=== PATIENT | male | born 1990 | race African-American/Black ===

== ENCOUNTER 2018-02-26 19:55 | Emergency (ER) | payer SELFPAY ==
[~2018-02-26] VITALS: Ht 188 cm; Wt 90.7 kg
[~2018-02-26 19:55] MED LIST: EXCEDRIN; FAMO20TA5; LORA1TAB PO; LRZ1T PO
--- OUTSIDE RECORDS SUMMARY | 2018-02-26 19:59 | XMS REPORT ---
Author Author GENERATED, SYSTEM Organization Unknown Address Unknown Phone Unavailable Care Team Providers Care Investor Relations Director Name Role Phone UNASSIGNED DOCTOR , DOCTOR PP Reason For Visit Chief Complaint SOB Social History Functional Status Vital Signs Results Chemistry from 03/25/2015 4:55 PMSODIUM 133 MMOL/L L (136-145 MMOL/L) POTASSIUM 3.2 MMOL/L L (3.5-5.1 MMOL/L) CHLORIDE 95 MMOL/L L (98-107 MMOL/L) TCO2 28.7 MMOL/L (21.0-32.0 MMOL/L) ANION GAP 9.3 MMOL/L (8.0-16.0 MMOL/L) BUN 6 MG/DL L (7-18 MG/DL) CREATININE 0.77 MG/DL (0.63-1.13 MG/DL) BUN/CREATININE RATIO 7.8 L (9.1-17.0 ) GLUCOSE 90 MG/DL (65-99 MG/DL) GFR EST NON AFR TUNISIAN >90 ML/MIN GFRA EST AFR AMER >90 ML/MIN CALCIUM 8.7 MG/DL (8.5-10.1 MG/DL) BILIRUBIN TOTAL 0.39 MG/DL (0.20-1.00 MG/DL) TOTAL PROTEIN 8.5 GM/DL H (6.4-8.2 GM/DL) ALBUMIN 4.1 GM/DL (3.4-5.0 GM/DL) GLOBULIN 4.4 GM/DL H (2.3-3.5 GM/DL) A/G RATIO 0.9 MG/DL L (1.5-2.2 MG/DL) ALK PHOS 104 U/L (46-116 U/L) ALT (SGPT) 38 U/L (14-59 U/L) AST (SGOT) 42 U/L H (15-37 U/L) TROPONIN-I 0.05 (SEE BELOW ) Hematology from 03/25/2015 4:55 PMWBC 8.8 X10e3/UL (3.6-11.2 X10e3/UL) RBC 5.30 X10e6/UL (4.06-5.63 X10e6/UL) HEMOGLOBIN 16.4 G/DL H (12.5-16.3 G/DL) HEMATOCRIT 47.1 % (36.7-47.1 %) MCV 88.9 FL (80.0-100.0 FL) MCH 30.9 PG (27.0-33.0 PG) MCHC 34.7 G/DL (32.0-36.0 G/DL) RDW 14.1 % (12.3-17.0 %) RDWSD 42.9 (37.1-47.8 ) PLATELET 316 X10e3/UL (159-386 X10e3/UL) MPV 6.8 FL L (7.4-10.4 FL) AUTOMATED DIFF PERFORMED SEGS 47.0 % LYMPHOCYTES 39.8 % MONOCYTES 12.4 % EOSINOPHILS 0.5 % BASOPHILS 0.3 % ABSOLUTE NEUTROPHILS 4.10 X10e3/UL (1.80-7.80 X10e3/UL) ABSOLUTE LYMPHOCYTES 3.50 X10e3/UL H (1.00-3.00 X10e3/UL) ABSOLUTE MONOCYTES 1.10 X10e3/UL H (0.30-1.00 X10e3/UL) ABSOLUTE EOSINOPHILS 0.00 X10e3/UL (0.00-0.50 X10e3/UL) ABSOLUTE BASOPHILS 0.00 X10e3/UL (0.00-0.20 X10e3/UL) Coagulation from 03/25/2015 4:55 PMD-DIMER 1.70 MG/L FEU H (0.00-0.50 MG/L FEU) DX Radiology from 03/25/2015 4:56 PMCHEST 2 VIEWS HISTORY: Chest Pain PRIORS: None. FINDINGS: The heart size and pulmonary vasculature within normal limits. No consolidating infiltrates are identified. No significant pleural effusion or pneumothorax is seen. IMPRESSION: No acute abnormality. CT Scan from 03/25/2015 6:10 PMCT CHEST (CTA) HISTORY: Chest Pain . Shortness of breath TECHNIQUE: Post contrast images were performed after the administration of 95 milliliters of Isovue intravenous contrast. 3 dimensional reconstructions were performed by the technologist. PRIORS: None. FINDINGS: Heart Size: Normal. Aorta: Intact and normal in size. Mediastinum and Marisa: No dominant adenopathy or fluid collection. Pulmonary Arteries: No evidence of filling defect to suggest pulmonary emboli. Pleura: No effusion or pneumothorax. Pulmonary parenchyma: No consolidation or dominant measurable mass. Upper abdomen: Unremarkable. IMPRESSION: Unremarkable CTA of the thorax without pulmonary embolus or acute aortic abnormality. Problems Encounter Diagnosis No relevant problems exist. Encounters Encounter Diagnosis No relevant problems exist. Plan of Care Procedures No relevant procedures performed. Immunizations No immunizations administered or ordered. Hospital Course Hospital Discharge Instructions Allergies, Adverse Reactions, Alerts * Latex Allergy has not been assessed. * IV Contrast Allergy has not been assessed. Medication Medication reconciliation has not been performed.
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
--- NOTE | 2018-02-26 20:10 | ED Psychosocial ---
General Chief Complaint: Substance Abuse Stated Complaint: INTOXICATION Nursing Triage Note: PT TO ED 6 PER EMS FOR C/O ALCOHOL INTOXICATION. PT GIVEN OPTION PER EMS FROM [facility] TO EITHER GO TO HOSPITAL OR [facility]. PT CHOSE HOSPITAL. PT WILL ONLY STATE HE DRANK "ENOUGH" Source: patient Exam Limitations: intoxication History of Present Illness Date Seen by Provider: Feb 26, 2018 Time Seen by Provider: 19:56 Initial Comments Here by EMS with report of patient being very intoxicated. Patient reports that he drank enough today. Apparently he was found intoxicated in police and EMS were summoned. Police gave him the option of going to nursing home or going to be evaluated at the ER as patient was unable to walk without danger of harming self. Patient chose to go to the emergency department. He denies injury. No obvious injury noted. He is intoxicated. Patient has been incontinent of urine. He is asking for something to eat and a room to stay in overnight. Timing/Duration: this afternoon Severity: moderate Associated Symptoms: ingestion (alcohol) Allergies and Home Medications Allergies Coded Allergies: No Known Drug Allergies (Unverified , 05/25/15) Home Medications No Active Prescriptions or Reported Meds Patient Home Medication List Home Medication List Reviewed: Yes Constitutional: see HPI; No chills, No fever EENTM: no symptoms reported Respiratory: no symptoms reported Cardiovascular: no symptoms reported Gastrointestinal: no symptoms reported Genitourinary: see HPI Musculoskeletal: no symptoms reported Skin: no symptoms reported Psychiatric/Neurological: See HPI Past Brljzdy-Afioqb-Ftmbgt Hx Past Med/Social Hx: Reviewed Nursing Past Med/Soc Hx Patient Social History Alcohol Use: Occasionally Uses Recreational Drug Use: No Smoking Status: Current Everyday Smoker Recent Foreign Travel: No Contact w/Someone Who Travel: No Recent Infectious Disease Expo: No Immunizations Up To Date PED Vaccines UTD: Yes Seasonal Allergies Seasonal Allergies: No Past Medical History Surgeries: No Respiratory: No Currently Using CPAP: No Currently Using BIPAP: No Cardiac: No Neurological: No Reproductive Disorders: No Sexually Transmitted Disease: No HIV/AIDS: No Gastrointestinal: No Musculoskeletal: No Endocrine: No Loss of Vision: Denies Cancer: No Psychosocial: Yes (AUDITORY HALLUCINATIONS) Integumentary: No Blood Disorders: No Adverse Reaction/Blood Tranf: No Family Medical History Reviewed Nursing Family Hx AIDS Alcoholism Cardiovascular disease Diabetes mellitus Hypertension Neoplasm No Pertinent Family Hx Physical Exam Vital Signs Vital Signs - First Documented 02/26/18 20:00 Temp 96.5 Pulse 94 Resp 18 B/P (MAP) 150/93 (112) Pulse Ox 95 O2 Delivery Room Air Capillary Refill : Less Than 3 Seconds General Appearance: WD/WN, no apparent distress, other (and smells of alcohol) HEENT: PERRL/EOMI, pharynx normal Neck: full range of motion, supple Respiratory: lungs clear, normal breath sounds Cardiovascular: regular rate, rhythm, no murmur Gastrointestinal: non tender, soft Extremities: non-tender, normal inspection Neurologic/Psychiatric: alert, other (slurred speech) Appearance/Memory: disheveled Behavior/Eye Contact: cooperative Skin: normal color, warm/dry Progress/Results/Core Measures Results/Orders My Orders Orders - FABRICIO JOHNSON MD General/Regular (02/26/18 Dinner) Vital Signs/I&O 02/26/18 20:00 Temp 96.5 Pulse 94 Resp 18 B/P (MAP) 150/93 (112) Pulse Ox 95 O2 Delivery Room Air Blood Pressure Mean: 112 Progress Progress Note : Progress Note Seen and evaluated. Patient appears significantly intoxicated. He is okay to stay at this point. He is asking for room in the hospital and wants to stay overnight. We did inform him that we can monitor him in the ER which is what I will do. At this point he has elected to stay but states that he is going to leave. We will continue to monitor. Diet requested and offered. 2140: Patient walking in and out of her room and states he wants to leave. He did eat. He did order alcohol level but that is pending. He does not want to stay. Patient left AGAINST MEDICAL ADVICE. Departure Impression Primary Impression: Alcohol abuse Disposition: Condition: Stable Departure-Patient Inst. Decision time for Depature: 21:42 Referrals: NO,LOCAL PHYSICIAN (PCP/Family) Primary Care Physician Patient Instructions: ALCOHOL AND SUBSTANCE ABUSE Add. Discharge Instructions: All discharge instructions reviewed with patient and/or family. Voiced understanding. You are leaving AGAINST MEDICAL ADVICE. You should avoid alcohol. Return for other concerns as needed. Scripts No Active Prescriptions or Reported Meds FABRICIO JOHNSON MD Feb 26, 2018 20:10
[2018-02-26 21:43] VITALS: BP 150/93
== END 2018-02-26 21:49 | disposition left against medical advice (07) ==
LOC: EDUNIT# 19:55 → ER 19:56
DX: F10.129 Alcohol abuse with intoxication, unspecified (principal); F17.210 Nicotine dependence, cigarettes, uncomplicated
CPT/HCPCS: 99283

== ENCOUNTER 2018-06-23 19:37 | Emergency (ER) | payer SELFPAY ==
[~2018-06-23] VITALS: Ht 182.9 cm; Wt 79.4 kg
[2018-06-23] MEDS ORDERED: PANTOPRAZOLE 40 MG (PROTONIX) VIAL IV STA (19:44)
[2018-06-23] MEDS ORDERED: LACTATED RINGERS 1,000 ML IV ONE ×3 (19:44→22:12)
[2018-06-23] MEDS ORDERED: TETANUS,DIPTH,PERTUSS P/F (BOOSTRIX) 0.5 ML VIAL IM STA (19:44)
--- OUTSIDE RECORDS SUMMARY | 2018-06-23 19:47 | XMS REPORT ---
Author Author GENO PAREDES Organization [facility] Address [address] [place] [address] Care Team Providers Care Apparel Merchandiser Name Role Phone GENO PAREDES Unavailable PROBLEMS Type Condition ICD9-CM Code [id number] Code Onset Dates Condition Status SNOMED Code Problem Other chronic pain G89.29 Active 39334020 Problem Pain in right knee M25.561 Active 95775288 ALLERGIES No Information ENCOUNTERS Encounter Location Date Diagnosis [facility] [id number] [place] [phone] Jun, [facility] [id number] [place] [phone] Apr, [facility] [id number] [place] [phone]- [phone] Apr, Pain in right knee M25.561 ; Pain in left knee M25.562 and Other chronic pain G89.29 [facility] [id number] [place] [phone] Dec, [facility] [address] [address] Dec, [facility] [id number] [place] [phone] Oct, [facility] [address] [place] [phone] Feb, [facility] [id number] [place] [phone] Jul, [facility] [address] [address] Jul, [facility] [address] [place] [address] Dec, [facility] [address] [facility] [id number] [place] [address] Mar, [facility] [address] [facility] [id number] [place] [address] Sep, IMMUNIZATIONS No Known Immunizations SOCIAL HISTORY Never Assessed REASON FOR VISIT Xray results PLAN OF CARE VITAL SIGNS MEDICATIONS Unknown Medications RESULTS No Results PROCEDURES No Known procedures INSTRUCTIONS MEDICATIONS ADMINISTERED No Known Medications MEDICAL (GENERAL) HISTORY Type Description Date Hospitalization History dehydration
--- OUTSIDE RECORDS SUMMARY | 2018-06-23 19:47 | XMS REPORT ---
Author Author GENO PAREDES [facility] Address [address] [place] [address] Care Team Providers Care Guide Setter Name Role Phone GENO PAREDES Unavailable PROBLEMS Type Condition ICD9-CM Code BUA12-NA Code Onset Dates Condition Status SNOMED Code Problem Other chronic pain G89.29 Active 89231533 Problem Pain in right knee M25.561 Active 53358975 ALLERGIES Substance Reaction Event Type Date Status amoxicillin Unknown Non Drug Allergy Apr, Active ENCOUNTERS Encounter Location Date Diagnosis [facility] [place] [id number] [place] [phone] Jun, [facility] [place] [id number] [place] [address] Apr, [facility] [place] [id number] [place] [address]- [address] Apr, Pain in right knee M25.561 ; Pain in left knee M25.562 and Other chronic pain G89.29 [facility] [place] [id number] [place] [address] 26[address] Dec, [facility] [place] [id number] [place] [address]- [address] Dec, [facility] [place] [id number] [place] [address]- [phone] Oct, [facility] [place] [id number] [place] [phone]- [address] Feb, [facility] [place] [id number] [place] [phone]- [address] Jul, [facility] [place] [id number] [place] [address]- [address] Jul, [facility] [place] [address] [facility] [id number] [place] [address] Dec, [facility] [place] [address] [facility] [id number] [address] Mar, [facility] [place] [address] [facility] [id number] [place] [address] Sep, IMMUNIZATIONS No Known Immunizations SOCIAL HISTORY Never Assessed REASON FOR VISIT Establish Care Pt c/o bilateral knee pain for over 6 months, pt reports popping often from knees, pain with walking and after sitting for long periods of time LORE [place] PLAN OF CARE Activity Details Follow Up prn Reason: VITAL SIGNS Weight 187.3 lbs 2018-05-12 Temperature 98.7 degrees Fahrenheit 2018-05-12 Heart Rate 88 bpm 2018-05-12 Respiratory Rate 20 2018-05-12 Blood pressure systolic 124 mmHg 2018-05-12 Blood pressure diastolic 72 mmHg 2018-05-12 MEDICATIONS Medication Instructions Dosage Frequency Start Date End Date Duration Status ibuprofen 1 tab Active Claritin 10 mg take 1 tablet by Oral route 1 time per day Oct, Not-Taking Flonase 50 mcg/actuation take 1 sprays by Nasal route 2 times per day in each nostril Oct, Not-Taking Ibuprofen 800 MG Orally Three times a day 1 tablet with food or milk as needed 8h Apr, Active RESULTS Name Result Date Reference Range Xray : Knee, Right 3 views (IN HOUSE) 2018-05-12 PROCEDURES Procedure Date Ordered Result Body Site X-RAY EXAM OF KNEE, 3 May 12, 2018 INSTRUCTIONS MEDICATIONS ADMINISTERED No Known Medications MEDICAL (GENERAL) HISTORY Type Description Date Hospitalization History dehydration
--- OUTSIDE RECORDS SUMMARY | 2018-06-23 19:48 | XMS REPORT | Continuity of Care Document ---
Demographics Preferred Language Unknown Marital Status Unknown [employer] Affiliation Unknown Race Unknown Ethnic Group Unknown Author Author [facility] Address Unknown Phone Unavailable Allergies Active Description Code Type Severity Reaction Onset Reported/Identified Relationship to Patient Clinical Status Yes No Known Drug Allergies [id number] Drug Allergy Unknown N/A 05/25/2015 Medications There [...] KIM KEITA DO Ot 780.1 HALLUCINATIONS 05/26/2015 IKM KEITA DO Ot D69.6 THROMBOCYTOPENIA, UNSPECIFIED 05/26/2015 KIM KEITA DO Ot E87.6 HYPOKALEMIA 05/26/2015 KIM KEITA DO Ot F10.229 ALCOHOL DEPENDENCE WITH INTOXICATION, UN 05/26/2015 KIM KEITA DO Ot F13.10 SEDATIVE, HYPNOTIC OR ANXIOLYTIC ABUSE, 05/26/2015 KIM KEITA DO Ot F17.200 NICOTINE DEPENDENCE, UNSPECIFIED, UNCOMP 05/26/2015 KIM KEITA DO Ot K70.9 ALCOHOLIC LIVER DISEASE, UNSPECIFIED 02/26/2018 FABRICIO JOHNSON MD Ot F10.129 ALCOHOL ABUSE WITH INTOXICATION, UNSPECI 02/26/2018 FABRICIO JOHNSON MD Ot F17.210 NICOTINE DEPENDENCE, CIGARETTES, UNCOMPL 02/28/2018 FABRICIO JOHNSON MD Ot F10.129 ALCOHOL ABUSE WITH INTOXICATION, UNSPECI 02/28/2018 FABRICIO JOHNSON MD Ot F17.210 NICOTINE DEPENDENCE, CIGARETTES, UNCOMPL Procedures There is no data. Results There is no data. Encounters ACCT No. Visit Date/Time Discharge Status Pt. Type Provider Facility Loc./Unit Complaint [id number] 11/04/2012 13:39:00 11/04/2012 23:59:59 CLS Outpatient [id number] 02/26/2018 19:56:00 02/26/2018 21:49:00 DIS Emergency FABRICIO JOHNSON MD Via [facility] ER INTOXICATION [id number] 05/25/2015 17:10:00 05/26/2015 14:38:00 DIS Outpatient KIM KEITA DO [facility] 4TH [id number] 01/25/2011 16:08:00 Document Registration [id number] 03/12/2010 05:03:00 Document Registration
[2018-06-23 19:54] LABS: BASOPHILS % (AUTO) 0 % (0-10); EOSINOPHILS % (AUTO) 0 % (0-10); HEMATOCRIT 48 % (40-54); HEMOGLOBIN 17.5 G/DL (13.3-17.7); LYMPHOCYTES # (AUTO) 2.1 X 10^3 (1.0-4.0); LYMPHOCYTES % (AUTO) 18 % (12-44); MEAN CORPUSCULAR HEMOGLOBIN 32 PG (25-34); MEAN CORPUSCULAR HGB CONC 36 G/DL (32-36); MEAN CORPUSCULAR VOLUME 89 FL (80-99); MEAN PLATELET VOLUME 9.1 FL (7.4-10.4); MONOCYTES # (AUTO) 1.4 X 10^3 (0.0-1.0); MONOCYTES % (AUTO) 12 % (0-12); NEUTROPHILS # (AUTO) 8.3 X 10^3 (1.8-7.8); NEUTROPHILS % (AUTO) 70 % (42-75); PLATELET COUNT 232 10^3/uL (130-400); RED BLOOD COUNT 5.42 10^6/uL (4.35-5.85); RED CELL DISTRIBUTION WIDTH 13.6 % (10.0-14.5); WHITE BLOOD COUNT 11.8 10^3/uL (4.3-11.0)
[2018-06-23 20:09] LABS: ALANINE AMINOTRANSFERASE 52 U/L (0-55); ALBUMIN 4.7 GM/DL (3.2-4.5); ALKALINE PHOSPHATASE 95 U/L (40-136); AMYLASE 128 U/L (25-125); BILIRUBIN,TOTAL 0.4 MG/DL (0.1-1.0); BUN/CREATININE RATIO 14; CALCIUM 9.5 MG/DL (8.5-10.1); CARBON DIOXIDE 22 MMOL/L (21-32); CHLORIDE 100 MMOL/L (98-107); CREATININE SERUM 0.96 MG/DL (0.60-1.30); GFR ESTIMATED > 60; GLUCOSE 95 MG/DL (70-105); LIPASE 29 U/L (8-78); MAGNESIUM 2.1 MG/DL (1.8-2.4); SODIUM 145 MMOL/L (135-145); TOTAL PROTEIN 8.8 GM/DL (6.4-8.2)
[2018-06-23 20:22] LABS: BILIRUBIN,URINE NEGATIVE (NEGATIVE); CLARITY,URINE CLEAR; COLOR,URINE YELLOW; GLUCOSE, URINE (UA) NEGATIVE (NEGATIVE); KETONES,URINE 2+ (NEGATIVE); LEUKOCYTE ESTERASE ,URINE NEGATIVE (NEGATIVE); NITRITE,URINE NEGATIVE (NEGATIVE); PH,URINE 5 (5-9); PROTEIN,URINE 3+ (NEGATIVE); UROBILINOGEN,URINE NORMAL (NORMAL)
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
--- NOTE | 2018-06-23 20:28 | ED General ---
General Chief Complaint: Substance Abuse Stated Complaint: LACERATION TO HEAD Nursing Triage Note: Pt brought to ED by EMS. Pt intoxicated last night and fell at approximatley 2200 hitting head. Pt has laceration to the back of head. Pt reports sleeping all day and then waking at approximately 1600 and drinking one pint of vodka from then until arrival of EMS. EMS state police called EMS. Nursing Sepsis Screen: No Definite Risk Source of Information: Patient, EMS History of Present Illness Date Seen by Provider: Jun 23, 2018 Time Seen by Provider: 19:38 Initial Comments PT ARRIVES VIA EMS--NO IMMOBILIZATION--PT WAS IMMEDIATELY PLACED IN CERVICAL COLLAR ON ARRIVAL TO ER EMS WAS CALLED BY POLICE PT WAS EVICTED FROM A FEMALE FRIEND'S HOUSE TONIGHT AND POLICE WERE CALLED TO THE RESIDENCE TO ASSIST WITH EVICTION. PT IS AN ALCOHOLIC AND DRINKS LARGE AMOUNTS EVERY DAY PT STATES HE WAS VERY INTOXICATED LAST NIGHT --DRANK UNKNOWN AMOUNT OF ALCOHOL-- AND FELL AND HIT THE BACK OF HIS HEAD ON CONCRETE AROUND 2200 LAST PM ACCORDING TO EMS, THIS WAS WITNESSED AND THERE WAS NO LOSS OF CONSCIOUSNESS PT HAS LACERATION TO BACK OF HIS HEAD PT HAS SLEPT ALL DAY AND WOKE UP AT 1600 TODAY AND BEGAN DRINKING AGAIN. PT STATES HE DRANK A PINT OF VODKA SINCE 1600, WHICH IS NORMAL FOR HIM. PT DENIES ANY HISTORY OF WITHDRAWL SEIZURES OR DT'S, AND CLAIMS THAT HE HAS GONE FOR A FEW DAYS WITHOUT ALCOHOL AND DID NOT HAVE THESE SYMPTOMS STATES HE DOES START TO SHAKE IF HE GOES TOO LONG WITHOUT ALCOHOL. WAS REPORTED TO EMS THAT PT HAS BEEN ESSENTIALLY HOMELESS, UNTIL HE MOVED IN WITH FEMALE FRIEND PER EMS, PT WAS EVICTED TONIGHT DUE TO HIS DRINKING PER EMS, THERE WAS NO ALTERCATION TONIGHT, BUT POLICE WERE CALLED TO AVOID ANY ALTERCATION WHEN PT WAS EVICTED. POLICE ARE NOT HERE WITH PT AND PT IS NOT UNDER ARREST, PER EMS. PT ONLY C/O HIS HEAD HURTING ALSO STATES HIS CHEST IS HURTING, BUT THIS IN ONGOING PROBLEM FOR SEVERAL WEEKS , AND HAS NEVER SOUGHT CARE, AND IS NO DIFFERENT TONIGHT. NO VISION CHANGES NO NAUSEA/VOMITING NO DIZZINESS NO NECK OR BACK PAIN NO SHORTNESS OF BREATH NO ABDOMINAL PAIN NO EXTREMITY PAIN . PT STATES HE HAS "KNEE PROBLEMS" AND TAKES IBUPROFEN, BUT HAS NOT HAD ANY KNEE PAIN TODAY LAST TETANUS IS UNKNOWN PCP: [facility] Allergies and Home Medications Allergies Coded Allergies: No Known Drug Allergies (Unverified , 05/25/15) Home Medications No Active Prescriptions or Reported Meds Patient Home Medication List Home Medication List Reviewed: Yes Review of Systems Review of Systems Constitutional: no symptoms reported; No dizziness EENTM: no symptoms reported; No blurred vision Respiratory: no symptoms reported Cardiovascular: see HPI, chest pain; No edema, No palpitations, No syncope, No vascular heart diseas Gastrointestinal: no symptoms reported; No abdominal pain, No nausea, No vomiting Genitourinary: no symptoms reported Musculoskeletal: see HPI; No back pain, No neck pain Skin: see HPI, other (LACERATION TO BACK OF HEAD, ABRASIONS TO ARMS) Psychiatric/Neurological: See HPI, Headache; Denies Numbness, Denies Paresthesia, Denies Seizure, Denies Tremors, Denies Weakness Hematologic/Lymphatic: No Symptoms Reported Immunological/Allergic: no symptoms reported Past Jalbcfj-Tsefaj-Nufmal Hx Patient Social History Alcohol Use: Regular Use ("A PINT" OF VODKA A DAY, PER PT ON 06/23/18) Alcohol Beverage of Choice: Vodka Recreational Drug Use: Yes (THC) Drug of Choice: THC Smoking Status: Current Everyday Smoker (<1/2 PPD) Type Used: Cigarettes Recent Foreign Travel: No Contact w/Someone Who Travel: No Recent Infectious Disease Expo: No Immunizations Up To Date Tetanus Booster (TDap): More than 5yrs PED Vaccines UTD: Yes Seasonal Allergies Seasonal Allergies: No Past Medical History Surgeries: No Respiratory: No Currently Using CPAP: No Currently Using BIPAP: No Cardiac: No Neurological: No Reproductive Disorders: No Sexually Transmitted Disease: No HIV/AIDS: No Genitourinary: No Gastrointestinal: No Musculoskeletal: Yes (KNEE PAIN ) Endocrine: No HEENT: Yes (POOR DENTITION) Loss of Vision: Denies Cancer: No Psychosocial: Yes (AUDITORY HALLUCINATIONS; ALCOHOLISM) Integumentary: No Blood Disorders: No Adverse Reaction/Blood Tranf: No Family Medical History AIDS Alcoholism Cardiovascular disease Diabetes mellitus Hypertension Neoplasm No Pertinent Family Hx Physical Exam Vital Signs Vital Signs - First Documented 06/23/18 19:37 Temp 98.2 Pulse 93 Resp 20 B/P (MAP) 152/102 (119) Pulse Ox 96 O2 Delivery Room Air Capillary Refill : Less Than 3 Seconds Height, Weight, BMI Height: 6'0" Weight: 175lbs. 0.0oz. 79.094570xl; BMI Method:Estimated General Appearance: No Apparent Distress, WD/WN, Other (SITTING UP, TALKING, LAUGHING,. PT IS PLEASANT, POLITE AND COOPERATIVE) HEENT: PERRL/EOMI, TMs Normal, Other (POOR DENTITION. MINOR ABRASION/SWELLING/ ECCHYMOSIS BELOW RIGHT EYE AND MINOR ABRASION TO BRIDGE OF NOSE. 2 CM LACERATION TO OCCIPUT. NO ACTIVE BLEEDING. DOES NOT APPEAR TO EXTEND TO BONY SKULL) Neck: Full Range of Motion, Normal Inspection, Non Tender, Supple Respiratory: Chest Non Tender, Normal Breath Sounds, No Accessory Muscle Use, No Respiratory Distress Cardiovascular: Regular Rate, Rhythm, No Edema, No JVD, No Murmur, Normal Peripheral Pulses Gastrointestinal: Normal Bowel Sounds, No Organomegaly, No Pulsatile Mass, Non Tender, Soft Back: Normal Inspection, No CVA Tenderness, No Vertebral Tenderness Extremity: Normal Capillary Refill, Normal Range of Motion, Non Tender, No Calf Tenderness, No Pedal Edema, Other (MINOR ABRASIONS TO ELBOWS, FOREARMS AND PALMS. ) Neurologic/Psychiatric: Alert, Oriented x3, No Motor/Sensory Deficits, Normal Mood/Affect, rfid technician II-XII Norm as Tested, Other (SPEECH SLIGHTLY SLURRED) Skin: Normal Color, Warm/Dry, Other (ABRASIONS NOTED ABOVE) Progress/Results/Core Measures Suspected Sepsis Recent Fever Within 48 Hours: No Infection Criteria Present: None New/Unexplained Altered Menta: No Sepsis Screen: No Definite Risk SIRS Temperature:98.2 Pulse: 93 Respiratory Rate: 20 Laboratory Tests 06/23/18 19:42: White Blood Count 11.8H Blood Pressure 152 /102 Mean: 119 Laboratory Tests 06/23/18 19:42: Creatinine 0.96, INR Comment 1.0, Platelet Count 232, Total Bilirubin 0.4 Results/Orders Lab Results Laboratory Tests Test 06/23/18 19:42 06/23/18 20:07 Range/Units White Blood Count 11.8 H 4.3-11.0 10^3/uL Red Blood Count 5.42 4.35-5.85 10^6/uL Hemoglobin 17.5 13.3-17.7 G/DL Hematocrit 48 40-54 % Mean Corpuscular Volume 89 80-99 FL Mean Corpuscular Hemoglobin 32 25-34 PG Mean Corpuscular Hemoglobin Concent 36 32-36 G/DL Red Cell Distribution Width 13.6 10.0-14.5 % Platelet Count 232 130-400 10^3/uL Mean Platelet Volume 9.1 7.4-10.4 FL Neutrophils (%) (Auto) 70 42-75 % Lymphocytes (%) (Auto) 18 12-44 % Monocytes (%) (Auto) 12 0-12 % Eosinophils (%) (Auto) 0 0-10 % Basophils (%) (Auto) 0 0-10 % Neutrophils # (Auto) 8.3 H 1.8-7.8 X 10^3 Lymphocytes # (Auto) 2.1 1.0-4.0 X 10^3 Monocytes # (Auto) 1.4 H 0.0-1.0 X 10^3 Eosinophils # (Auto) 0.0 0.0-0.3 10^3/uL Basophils # (Auto) 0.0 0.0-0.1 10^3/uL Prothrombin Time 13.0 12.2-14.7 SEC INR Comment 1.0 0.8-1.4 Activated Partial Thromboplast Time 25 24-35 SEC Sodium Level 145 135-145 MMOL/L Potassium Level 4.0 3.6-5.0 MMOL/L Chloride Level 100 98-107 MMOL/L Carbon Dioxide Level 22 21-32 MMOL/L Anion Gap 23 H 5-14 MMOL/L Blood Urea Nitrogen 13 7-18 MG/DL Creatinine 0.96 0.60-1.30 MG/DL Estimat Glomerular Filtration Rate > 60 BUN/Creatinine Ratio 14 Glucose Level 95 70-105 MG/DL Calcium Level 9.5 8.5-10.1 MG/DL Corrected Calcium 8.5-10.1 MG/DL Magnesium Level 2.1 1.8-2.4 MG/DL Total Bilirubin 0.4 0.1-1.0 MG/DL Aspartate Amino Transf (AST/SGOT) 233 H 5-34 U/L Alanine Aminotransferase (ALT/SGPT) 52 0-55 U/L Alkaline Phosphatase 95 40-136 U/L Troponin I < 0.30 <0.30 NG/ML Total Protein 8.8 H 6.4-8.2 GM/DL Albumin 4.7 H 3.2-4.5 GM/DL Amylase Level 128 H 25-125 U/L Lipase 29 8-78 U/L Serum Alcohol 418 *H <10 MG/DL Urine Color YELLOW Urine Clarity CLEAR Urine pH 5 5-9 Urine Specific [place] 1.025 H 1.016-1.022 Urine Protein 3+ H NEGATIVE Urine Glucose (UA) NEGATIVE NEGATIVE Urine Ketones 2+ H NEGATIVE Urine Nitrite NEGATIVE NEGATIVE Urine Bilirubin NEGATIVE NEGATIVE Urine Urobilinogen NORMAL NORMAL MG/DL Urine Leukocyte Esterase NEGATIVE NEGATIVE Urine RBC (Auto) 5+ H NEGATIVE Urine RBC 0-2 /HPF Urine WBC RARE /HPF Urine Crystals NONE /LPF Urine Bacteria NEGATIVE /HPF Urine Casts PRESENT /LPF Urine Hyaline Casts 25-50 H /LPF Urine Coarse Granular Casts 2-5 H /LPF Urine Mucus MODERATE H /LPF Urine Culture Indicated NO Urine Opiates Screen NEGATIVE NEGATIVE Urine Oxycodone Screen NEGATIVE NEGATIVE Urine Methadone Screen NEGATIVE NEGATIVE Urine Propoxyphene Screen NEGATIVE NEGATIVE Urine Barbiturates Screen NEGATIVE NEGATIVE Ur Tricyclic Antidepressants Screen NEGATIVE NEGATIVE Urine Phencyclidine Screen NEGATIVE NEGATIVE Urine Amphetamines Screen NEGATIVE NEGATIVE Urine Methamphetamines Screen NEGATIVE NEGATIVE Urine Benzodiazepines Screen NEGATIVE NEGATIVE Urine Cocaine Screen NEGATIVE NEGATIVE Urine Cannabinoids Screen NEGATIVE NEGATIVE My Orders Orders - ERICK CARDENAS DO Saline Lock/Iv-Start (06/23/18 19:44) Ekg Tracing (06/23/18 19:44) Monitor-Rhythm Ecg Trace Only (06/23/18 19:44) Ct Head/Cervical Spine Wo (06/23/18 19:44) Alcohol (06/23/18 19:44) Amylase (06/23/18 19:44) Cbc With Automated Diff (06/23/18 19:44) Comprehensive Metabolic Panel (06/23/18 19:44) Drug Screen Stat (Urine) (06/23/18 19:44) Lipase (06/23/18 19:44) Magnesium (06/23/18 19:44) Protime With Inr (06/23/18 19:44) Partial Thromboplastin Time (06/23/18 19:44) Troponin I (06/23/18 19:44) Ua Culture If Indicated (06/23/18 19:44) Chest 1 View, Ap/Pa Only (06/23/18 19:44) Pelvis (06/23/18 19:44) Saline Lock/Iv-Start (06/23/18 19:44) Lactated Ringers (Lr 1000 Ml Iv Solution (06/23/18 19:44) Pantoprazole Injection (Protonix Injecti (06/23/18 19:44) Dipht,Pertuss(Acell),Tet Adult (Boostrix (06/23/18 19:44) Cervical Collar (06/23/18 19:44) Saline Lock/Iv-Start (06/23/18 20:25) Lactated Ringers (Lr 1000 Ml Iv Solution (06/23/18 20:25) Saline Lock/Iv-Start (06/23/18 22:12) Lactated Ringers (Lr 1000 Ml Iv Solution (06/23/18 22:12) Saline Lock/Iv-Start (06/24/18 00:01) Lactated Ringers (Lr 1000 Ml Iv Solution (06/24/18 00:01) Acetaminophen Tablet (Tylenol Tablet) (06/24/18 00:30) D5 1/2 Ns W/Kcl 10 Meq/L (Dextrose 5%/0. (06/24/18 02:45) Medications Given in ED Current Medications Medications Dose Ordered Sig/Yaniv Route Start Time Stop Time Status Last Admin Dose Admin Acetaminophen 1,000 mg ONCE ONCE PO 06/24/18 00:30 06/24/18 00:31 DC 06/24/18 00:36 1,000 MG Lactated Ringer's 1,000 ml @ 0 mls/hr Q0M ONCE IV 06/23/18 19:44 06/23/18 19:47 DC 06/23/18 19:55 1,000 MLS/HR Lactated Ringer's 1,000 ml @ 0 mls/hr Q0M ONCE IV 06/23/18 20:25 06/23/18 20:26 DC 06/23/18 20:51 1,000 MLS/HR Lactated Ringer's 1,000 ml @ 0 mls/hr Q0M ONCE IV 06/23/18 22:12 06/23/18 22:13 DC 06/23/18 22:13 1,000 MLS/HR Lactated Ringer's 1,000 ml @ 0 mls/hr Q0M ONCE IV 06/24/18 00:01 06/24/18 00:02 DC 06/24/18 00:22 1,000 MLS/HR Vital Signs/I&O 06/23/18 06/24/18 19:37 06:03 Temp 98.2 Pulse 93 98 Resp 20 12 B/P (MAP) 152/102 (119) 125/77 Pulse Ox 96 98 O2 Delivery Room Air Capillary Refill : Less Than 3 Seconds Blood Pressure Mean: 119 Progress Note : Progress Note NO ICU BEDS AVAILABLE AT THIS TIME BROTHER STATES THIS IS HIS NORMAL BASELINE. WILL KEEP IN ER , OBSERVE AND HYDRATE PT PT SLEPT FOR REMAINDER OF ER STAY 0030--NOW BEGINNING TO C/O HEADACHE--TYLENOL GIVEN. SPEECH IS CLEAR 0300--PT FEELING MUCH BETTER, HEADACHE IS GONE. PT RESTING QUIETLY AND REMAINS PLEASANT AND COOPERATIVE. SPEECH IS CLEAR 0600--PT DISMISSED FROM ER, GAIT STEADY AND SPEECH CLEAR AND PT IS ASYMPTOMATIC. MULTIPLE NUMBERS WERE CALLED BY ER STAFF TO TRY TO FIND SOMEONE TO PICK HIM UP, INCLUDING HIS BROTHER AND NO ONE ANSWERED THEIR PHONES, AND PT DOES NOT KNOW ANY OF THEIR ADDRESSES TO TAKE A TAXI. PT IS NOT INTERESTED IN SEEKING TREATMENT FOR ALCOHOLISM ECG Initial ECG Impression Date: Jun 23, 2018 Initial ECG Impression Time: 19:48 Initial ECG Rate: 101 Initial ECG Rhythm: Normal Sinus Diagnostic Imaging Comments CT HEAD/CERVICAL SPINE--NO ACUTE PROCESS, PER RADIOLOGIST REPORT @ 2026 Reviewed: Reviewed by Me Departure Impression Primary Impression: Alcohol intoxication in active alcoholic Additional Impressions: Closed head injury without concussion Occipital scalp laceration Abrasions of multiple sites Ejcghjzyfo-aztdbupjl-fkbriai (DPT) vaccination administered at current visit Disposition: 01 HOME, SELF-CARE Condition: Improved Departure-Patient Inst. Referrals: NO,LOCAL PHYSICIAN (PCP/Family) Primary Care Physician Patient Instructions: ALCOHOL AND SUBSTANCE ABUSE, Alcohol Abuse and Alcoholism (DC), Closed Head Injury (DC), Diphtheria and Tetanus Toxoids, and Acellular Pertussis Vaccine, Skin Abrasions (DC), Wound Care (DC) Add. Discharge Instructions: HOME, REST NO ALCOHOL!!! TYLENOL AND MOTRIN NEEDED FOR PAIN CLEAN WOUNDS TWICE A DAY WITH ANTIBACTERIAL SOAP AND WATER, APPLY ANTIBIOTIC OINTMENT TWICE A DAY FOLLOW UP WITH OF EDITH NEEDED RETURN TO ER IF WORSE All discharge instructions reviewed with patient and/or family. Voiced understanding. Scripts No Active Prescriptions or Reported Meds ERICK CARDENAS DO Jun 23, 2018 20:28
--- NOTE | 2018-06-23 20:31 | Diagnostic Imaging Report ---
INDICATION: Fall. Time of exam: 8:41 PM Correlation is made with prior chest from 05/25/2015. The heart size is normal. The pulmonary vascularity is unremarkable. The lungs are clear. No infiltrate, effusion or pneumothorax is detected. Impression: No acute cardiopulmonary process is detected. Dictated by: Dictated on workstation # [id number]
[2018-06-23 20:34] LABS: BACTERIA,URINE NEGATIVE /HPF; HYALINE CASTS, URINE 25-50 /LPF; RBC,URINE 0-2 /HPF; WBC,URINE RARE /HPF
--- NOTE | 2018-06-23 20:34 | Diagnostic Imaging Report ---
INDICATION: Fall. Time of exam: 8:43 PM Femoral acetabular alignment is normal bilaterally. Both femoral heads and necks are intact. The rami are intact. No fractures are seen. IMPRESSION: No acute bony abnormality is detected. Dictated by: Dictated on workstation # [id number]
[2018-06-23 20:36] LABS: AMPHETAMINE SCREEN, URINE NEGATIVE (NEGATIVE); BARBITURATE SCREEN URINE NEGATIVE (NEGATIVE); BENZODIAZEPINES SCREEN URINE NEGATIVE (NEGATIVE); CANNABINOID SCREEN, URINE NEGATIVE (NEGATIVE); COCAINE SCREEN URINE NEGATIVE (NEGATIVE); METHADONE STAT NEGATIVE (NEGATIVE); METHAMPHETAMINE SCREEN URINE S NEGATIVE (NEGATIVE); OPIATE SCREEN URINE NEGATIVE (NEGATIVE); OXYCODONE STAT NEGATIVE (NEGATIVE); PROPOXYPHENE STAT NEGATIVE (NEGATIVE); TRICYCLIC ANTIDEPRESSANTS SCRE NEGATIVE (NEGATIVE)
[2018-06-24] MEDS ORDERED: LACTATED RINGERS 1,000 ML IV ONE (00:01)
[2018-06-24] MEDS ORDERED: ACETAMINOPHEN 500 MG TAB (TYLENOL) PO ONE (00:30)
[2018-06-24] MEDS ORDERED: D5 1/2 NS W/KCL 10 MEQ/L 1,000 ML IV SCH (02:45)
[2018-06-24 06:03] VITALS: BP 125/77
== END 2018-06-24 06:03 | disposition home or self-care (01) ==
LOC: EDUNIT# 19:37 → ER 19:38
DX: S09.90XA Unspecified injury of head, initial encounter (principal); S01.01XA Laceration without foreign body of scalp, initial encounter; S50.311A Abrasion of right elbow, initial encounter; S50.312A Abrasion of left elbow, initial encounter; S50.811A Abrasion of right forearm, initial encounter; S50.812A Abrasion of left forearm, initial encounter; S00.31XA Abrasion of nose, initial encounter; F10.220 Alcohol dependence with intoxication, uncomplicated; F12.10 Cannabis abuse, uncomplicated; F17.210 Nicotine dependence, cigarettes, uncomplicated; Z23 Encounter for immunization; Z82.49 Family history of ischemic heart disease and other diseases of the circulatory system; W19.XXXA Unspecified fall, initial encounter; W22.09XA Striking against other stationary object, initial encounter
CPT/HCPCS: 36415; 70450; 71045; 72125; 72170; 80053; 80306; 80320; 81000; 82150; 83690; 83735; 84484; 85025; 85610; 85730; 90715; 93005; 93041

== ENCOUNTER 2021-12-15 00:27 | Observation (INO) | payer SELFPAY ==
[~2021-12-15] VITALS: Ht 187 cm; Wt 90.0 kg
[2021-12-15 00:27] VITALS: BP 154/91
[2021-12-15] MEDS ORDERED: ASPIRIN 81 MG CHEW (CHILDREN'S ASA) PO ONE (00:30)
[2021-12-15 00:44] LABS: BASOPHILS % (AUTO) 0 % (0-10); EOSINOPHILS # (AUTO) 0.2 10^3/uL (0.0-0.3); EOSINOPHILS % (AUTO) 2 % (0-10); HEMATOCRIT 48 % (40-54); HEMOGLOBIN 16.3 g/dL (13.3-17.7); LYMPHOCYTES # (AUTO) 2.3 10^3/uL (1.0-4.0); LYMPHOCYTES % (AUTO) 33 % (12-44); MEAN CORPUSCULAR HEMOGLOBIN 30 pg (25-34); MEAN CORPUSCULAR HGB CONC 34 g/dL (32-36); MEAN CORPUSCULAR VOLUME 89 fL (80-99); MEAN PLATELET VOLUME 8.4 fL (9.0-12.2); MONOCYTES # (AUTO) 0.6 10^3/uL (0.0-1.0); MONOCYTES % (AUTO) 8 % (0-12); NEUTROPHILS # (AUTO) 4.1 10^3/uL (1.8-7.8); NEUTROPHILS % (AUTO) 57 % (42-75); PLATELET COUNT 234 10^3/uL (130-400); WHITE BLOOD COUNT 7.1 10^3/uL (4.3-11.0)
[2021-12-15 00:50] LABS: INR 0.9 (0.8-1.4)
[2021-12-15 00:51] LABS: BILIRUBIN,URINE NEGATIVE (NEGATIVE); CLARITY,URINE CLEAR; COLOR,URINE YELLOW; GLUCOSE, URINE (UA) NEGATIVE (NEGATIVE); KETONES,URINE 1+ (NEGATIVE); LEUKOCYTE ESTERASE ,URINE NEGATIVE (NEGATIVE); NITRITE,URINE NEGATIVE (NEGATIVE); PROTEIN,URINE 2+ (NEGATIVE)
[2021-12-15 00:53] LABS: ALBUMIN 4.6 GM/DL (3.2-4.5); CHLORIDE 97 MMOL/L (98-107); POTASSIUM 3.8 MMOL/L (3.6-5.0); SODIUM 140 MMOL/L (135-145)
[2021-12-15 00:54] LABS: AMYLASE 125 U/L (25-125); CALCIUM 8.9 MG/DL (8.5-10.1)
[2021-12-15 00:56] LABS: GLUCOSE 98 MG/DL (70-105); TOTAL PROTEIN 7.9 GM/DL (6.4-8.2)
[2021-12-15 00:57] LABS: BILIRUBIN,TOTAL 0.5 MG/DL (0.1-1.0); CARBON DIOXIDE 22 MMOL/L (21-32)
--- NOTE | 2021-12-15 00:57 | ED Cardiac General ---
History of Present Illness General Chief Complaint: Chest Pain Stated Complaint: SOA Nursing Triage Note: Pt arrives per EMS w/ c/o chest pain, ongoing x 2 days. Moved self to stretcher, and attached to electronic device monitor. Pt does admit to drinking "about a pint of vodka" tonight. Source: patient (EXTREMELY VAGUE AND LIMITED HISTORIAN) History of Present Illness Date Seen by Provider: Dec 15, 2021 Time Seen by Provider: 00:23 Initial Comments PT ARRIVES VIA EMS C/O CHEST PAIN FOR A COUPLE OF DAYS PAIN IS IN MID CHEST ALSO C/O SHORTNESS OF BREATH "FOR AWHILE" --UNABLE TO ELABORATE HOW LONG HE HAS FELT SHORT OF BREATH UNABLE TO OBTAIN ANY OTHER INFORMATION FROM PT PT HAS LONG HISTORY OF ALCOHOLISM AND STATES HE HAS HAD "ABOUT A PINT" OF VODKA TONIGHT PT ALSO SMOKES CIGARETTES BUT IS UNABLE TO STATE HOW MUCH HE SMOKES. PT STATES HE "JUST MOVED BACK HERE A MONTH AGO FROM [facility]" [facility] po [employer] MED[facility]: No PCP NONE Allergies and Home Medications Allergies Coded Allergies: No Known Drug Allergies (Unverified , 05/25/15) Patient Home Medication List Home Medication List Reviewed: Yes No Active Prescriptions or Reported Meds Review of Systems Review of Systems Constitutional: no symptoms reported Respiratory: See HPI Past Ymxtske-Loppix-Ezbkjk Hx Patient Social History Tobacco Use?: Yes Tobacco type used: Cigarettes Smoking Status: Current Someday Smoker Use of E-Cig and/or Vaping dev: No Substance use?: Yes Substance type: Marijuana Substance frequency: Rarely Alcohol Use?: Yes Alcohol type: Hard Liquor Alcohol Frequency: Couple times a week Immunizations Up To Date Tetanus Booster (TDap): More than 5yrs PED Vaccines UTD: Yes Influenza Vaccine Up-to-Date: No; Not Current First/Initial COVID19 Vaccinat: 09/16 Second COVID19 Vaccination Devin: 10/18 Seasonal Allergies Seasonal Allergies: No Past Medical History Surgeries: No Respiratory: No Currently Using CPAP: No Currently Using BIPAP: No Cardiac: No Neurological: No Reproductive Disorders: No Sexually Transmitted Disease: No HIV/AIDS: No Genitourinary: No Gastrointestinal: No Musculoskeletal: Yes (KNEE PAIN ) Endocrine: No HEENT: Yes (POOR DENTITION) Loss of Vision: Denies Cancer: No Psychosocial: Yes (AUDITORY HALLUCINATIONS; ALCOHOLISM) Integumentary: No Blood Disorders: No Adverse Reaction/Blood Tranf: No Family Medical History AIDS Alcoholism Cardiovascular disease Diabetes mellitus Hypertension Neoplasm No Pertinent Family Hx Physical Exam Vital Signs Vital Signs - First Documented 12/15/21 00:27 Temp 36.5 Pulse 81 Resp 20 B/P (MAP) 154/91 (112) Pulse Ox 96 O2 Delivery Room Air Capillary Refill : Less Than 3 Seconds Height, Weight, BMI Height: 6'0" Weight: 175lbs. 0.0oz. 79.068838gp; 30.00 BMI Method:Estimated General Appearance: No Apparent Distress, WD/WN HEENT: Other (POOR DENTITION) Respiratory: Chest Non Tender, Normal Breath Sounds, No Accessory Muscle Use, No Respiratory Distress Cardiovascular: Regular Rate, Rhythm, No Murmur Gastrointestinal: Non Tender, Soft Extremity: Normal Inspection Neurologic/Psychiatric: Alert, No Motor/Sensory Deficits, Normal Mood/Affect, personnel consultant II-XII Norm as Tested, Other (SPEECH CLEAR, GAIT STEADY; ORIENTED TO PLACE, SOMEWHAT DISORIENTED TO TIME AND SITUTATION AND VERY POOR MEMORY.) Skin: Normal Color (PT IS BLACK), Warm/Dry Progress/Results/Core Measures Results/Orders Lab Results Laboratory Tests Test 12/15/21 00:30 12/15/21 00:45 Range/Units White Blood Count 7.1 4.3-11.0 10^3/uL Red Blood Count 5.37 4.30-5.52 10^6/uL Hemoglobin 16.3 13.3-17.7 g/dL Hematocrit 48 40-54 % Mean Corpuscular Volume 89 80-99 fL Mean Corpuscular Hemoglobin 30 25-34 pg Mean Corpuscular Hemoglobin Concent 34 32-36 g/dL Red Cell Distribution Width 16.4 H 10.0-14.5 % Platelet Count 234 130-400 10^3/uL Mean Platelet Volume 8.4 L 9.0-12.2 fL Immature Granulocyte % (Auto) 0 % Neutrophils (%) (Auto) 57 42-75 % Lymphocytes (%) (Auto) 33 12-44 % Monocytes (%) (Auto) 8 0-12 % Eosinophils (%) (Auto) 2 0-10 % Basophils (%) (Auto) 0 0-10 % Neutrophils # (Auto) 4.1 1.8-7.8 10^3/uL Lymphocytes # (Auto) 2.3 1.0-4.0 10^3/uL Monocytes # (Auto) 0.6 0.0-1.0 10^3/uL Eosinophils # (Auto) 0.2 0.0-0.3 10^3/uL Basophils # (Auto) 0.0 0.0-0.1 10^3/uL Immature Granulocyte # (Auto) 0.0 0.0-0.1 10^3/uL Prothrombin Time 12.0 L 12.2-14.7 SEC INR Comment 0.9 0.8-1.4 Activated Partial Thromboplast Time 24 24-35 SEC Sodium Level 140 135-145 MMOL/L Potassium Level 3.8 3.6-5.0 MMOL/L Chloride Level 97 L 98-107 MMOL/L Carbon Dioxide Level 22 21-32 MMOL/L Anion Gap 21 H 5-14 MMOL/L Blood Urea Nitrogen 12 7-18 MG/DL Creatinine 0.89 0.60-1.30 MG/DL Estimat Glomerular Filtration Rate 117 BUN/Creatinine Ratio 13 Glucose Level 98 70-105 MG/DL Calcium Level 8.9 8.5-10.1 MG/DL Corrected Calcium 8.5-10.1 MG/DL Magnesium Level 2.3 1.6-2.4 MG/DL Total Bilirubin 0.5 0.1-1.0 MG/DL Aspartate Amino Transf (AST/SGOT) 50 H 5-34 U/L Alanine Aminotransferase (ALT/SGPT) 58 H 0-55 U/L Alkaline Phosphatase 95 40-136 U/L Total Creatine Kinase 253 H 30-200 U/L Creatine Kinase MB 1.2 <6.6 NG/ML Myoglobin 50.4 10.0-92.0 NG/ML Troponin I < 0.028 <0.028 NG/ML B-Type Natriuretic Peptide 14.7 <100.0 PG/ML Total Protein 7.9 6.4-8.2 GM/DL Albumin 4.6 H 3.2-4.5 GM/DL Amylase Level 125 25-125 U/L Lipase 64 8-78 U/L Serum Alcohol 445 *H <10 MG/DL Influenza Type A (RT-PCR) Not Detected Not Detecte Influenza Type B (RT-PCR) Not Detected Not Detecte SARS-CoV-2 RNA (RT-PCR) Not Detected Not Detecte Urine Color YELLOW Urine Clarity CLEAR Urine pH 6.0 5-9 Urine Specific [place] >=1.030 1.016-1.022 Urine Protein 2+ H NEGATIVE Urine Glucose (UA) NEGATIVE NEGATIVE Urine Ketones 1+ H NEGATIVE Urine Nitrite NEGATIVE NEGATIVE Urine Bilirubin NEGATIVE NEGATIVE Urine Urobilinogen 0.2 < = 1.0 MG/DL Urine Leukocyte Esterase NEGATIVE NEGATIVE Urine RBC (Auto) TRACE-I H NEGATIVE Urine RBC NONE /HPF Urine WBC NONE /HPF Urine Squamous Epithelial Cells 0-2 /HPF Urine Crystals NONE /LPF Urine Bacteria NEGATIVE /HPF Urine Casts NONE /LPF Urine Mucus MODERATE H /LPF Urine Culture Indicated NO Urine Opiates Screen NEGATIVE NEGATIVE Urine Oxycodone Screen NEGATIVE NEGATIVE Urine Methadone Screen NEGATIVE NEGATIVE Urine Propoxyphene Screen NEGATIVE NEGATIVE Urine Barbiturates Screen NEGATIVE NEGATIVE Ur Tricyclic Antidepressants Screen NEGATIVE NEGATIVE Urine Phencyclidine Screen NEGATIVE NEGATIVE Urine Amphetamines Screen NEGATIVE NEGATIVE Urine Methamphetamines Screen NEGATIVE NEGATIVE Urine Benzodiazepines Screen NEGATIVE NEGATIVE Urine Cocaine Screen NEGATIVE NEGATIVE Urine Cannabinoids Screen NEGATIVE NEGATIVE My Orders Orders - ERICK CARDENAS DO Ed Iv/Invasive Line Start (12/15/21 00:30) Ekg Tracing (12/15/21 00:30) O2 (12/15/21 00:30) Monitor-Rhythm Ecg Trace Only (12/15/21:30) Alcohol (12/15/21:30) Amylase (12/15/21 00:30) Bnp [place] (12/15/21 00:30) Cbc With Automated Diff (12/15/21 00:30) Comprehensive Metabolic Panel (12/15/21 00:30) Creatine Kinase (12/15/21 00:30) Creatine Kinase Mb (12/15/21 00:30) Drug Screen Stat (Urine) (12/15/21 00:30) Lipase (12/15/21 00:30) Magnesium (12/15/21 00:30) Protime With Inr (12/15/21:30) Partial Thromboplastin Time (12/15/21 00:30) Ua Culture If Indicated (12/15/21 00:30) Myoglobin Serum (12/15/21 00:30) Troponin I [place] (12/15/21 00:30) Covid 19 Inhouse Test (12/15/21 00:30) Aspirin Chewable Tablet (Baby Aspirin Ch (12/15/21 00:30) Influenza A And B By Pcr (12/15/21 00:30) Isolation Central Supply Req (12/15/21 00:30) Chest 1 View, Ap/Pa Only (12/15/21 00:39) Pantoprazole Injection (Protonix Injecti (12/15/21 01:15) Ed Iv/Invasive Line Start (12/15/21 01:07) Lactated Ringers (Lr 1000 Ml Iv Solution (12/15/21 01:15) Vital Signs/I&O 12/15/21 00:27 Temp 36.5 Pulse 81 Resp 20 B/P (MAP) 154/91 (112) Pulse Ox 96 O2 Delivery Room Air Blood Pressure Mean: 112 Progress Progress Note : Progress Note GIVEN IV FLUIDS NO COMPLAINTS DURING ER STAY Departure Communication (Admissions) [id number]--SPOKE WITH DR. MCGREGOR, HOSPITALIST, ACCEPTS PT FOR ADMIT. ORDERS NOTED. Impression Primary Impression: Alcohol intoxication Qualified Codes: F10.920 - Alcohol use, unspecified with intoxication, unc omplicated Additional Impression: Chest pain Disposition: ADMITTED INPATIENT Condition: Stable Admissions Decision to Admit Reason: Admit from ER (General) Decision to Admit/Date: Dec 15, 2021 Time/Decision to Admit Time: 01:50 Departure-Patient Inst. Referrals: NO,LOCAL PHYSICIAN (PCP/Family) Primary Care Physician Scripts No Active Prescriptions or Reported Meds ERICK CARDENAS DO Dec 15, 2021 00:57
[2021-12-15 00:59] LABS: ALKALINE PHOSPHATASE 95 U/L (40-136); CREATININE SERUM 0.89 MG/DL (0.60-1.30); GFR ESTIMATED 117
[2021-12-15 01:00] LABS: BUN/CREATININE RATIO 13
[2021-12-15 01:00] LABS: BACTERIA,URINE NEGATIVE /HPF; SQUAMOUS EPITHELIAL CELL,UR 0-2 /HPF
[2021-12-15 01:02] LABS: ALANINE AMINOTRANSFERASE 58 U/L (0-55); MAGNESIUM 2.3 MG/DL (1.6-2.4)
[2021-12-15 01:03] LABS: CREATINE KINASE 253 U/L (30-200); LIPASE 64 U/L (8-78)
[2021-12-15 01:09] LABS: AMPHETAMINE SCREEN, URINE NEGATIVE (NEGATIVE); BARBITURATE SCREEN URINE NEGATIVE (NEGATIVE); BENZODIAZEPINES SCREEN URINE NEGATIVE (NEGATIVE); CANNABINOID SCREEN, URINE NEGATIVE (NEGATIVE); COCAINE SCREEN URINE NEGATIVE (NEGATIVE); METHADONE STAT NEGATIVE (NEGATIVE); METHAMPHETAMINE SCREEN URINE S NEGATIVE (NEGATIVE); OPIATE SCREEN URINE NEGATIVE (NEGATIVE); OXYCODONE STAT NEGATIVE (NEGATIVE); PROPOXYPHENE STAT NEGATIVE (NEGATIVE); TRICYCLIC ANTIDEPRESSANTS SCRE NEGATIVE (NEGATIVE)
[2021-12-15 01:10] LABS: CREATINE KINASE MB 1.2 NG/ML (<6.6)
[2021-12-15] MEDS ORDERED: LACTATED RINGERS 1,000 ML IV ONE ×2 (01:15→02:18)
[2021-12-15] MEDS ORDERED: PANTOPRAZOLE 40 MG (PROTONIX) VIAL IV ONE (01:15)
[2021-12-15] MEDS ORDERED: ONDANSETRON 4 MG/2 ML (SDV) Z0FRAN IV PRN ×2 (03:45→14:45)
[2021-12-15] MEDS: LACTATED RINGERS 1,000 ML IV SCH ×4 (03:47→23:20)
[2021-12-15 04:48] LABS: BASOPHILS % (AUTO) 1 % (0-10); EOSINOPHILS % (AUTO) 0 % (0-10); HEMATOCRIT 42 % (40-54); HEMOGLOBIN 14.4 g/dL (13.3-17.7); LYMPHOCYTES # (AUTO) 2.4 10^3/uL (1.0-4.0); LYMPHOCYTES % (AUTO) 39 % (12-44); MEAN CORPUSCULAR HEMOGLOBIN 30 pg (25-34); MEAN CORPUSCULAR HGB CONC 34 g/dL (32-36); MEAN CORPUSCULAR VOLUME 89 fL (80-99); MEAN PLATELET VOLUME 8.6 fL (9.0-12.2); MONOCYTES # (AUTO) 0.4 10^3/uL (0.0-1.0); MONOCYTES % (AUTO) 7 % (0-12); NEUTROPHILS # (AUTO) 3.3 10^3/uL (1.8-7.8); NEUTROPHILS % (AUTO) 53 % (42-75); PLATELET COUNT 191 10^3/uL (130-400); WHITE BLOOD COUNT 6.2 10^3/uL (4.3-11.0)
[2021-12-15 04:56] LABS: POTASSIUM 3.4 MMOL/L (3.6-5.0)
[2021-12-15 04:58] LABS: CALCIUM 8.1 MG/DL (8.5-10.1)
[2021-12-15 05:02] LABS: CREATININE SERUM 0.75 MG/DL (0.60-1.30)
--- NOTE | 2021-12-15 05:41 | Diagnostic Imaging Report ---
INDICATION: Chest pain. COMPARISON: 06/23/2018 FINDINGS: Single frontal view of the chest demonstrates normal heart size and pulmonary vascularity. The lungs show low inspiratory volumes with crowding of the central hilar structures, but are otherwise clear. No large pleural effusion or pneumothorax is seen. The visualized osseous structures show no acute abnormalities. IMPRESSION: 1. No acute cardiopulmonary process. Dictated by: Dictated on workstation # [id number]
[2021-12-15] MEDS: PANTOPRAZOLE 40 MG (PROTONIX) VIAL IV SCH (08:30)
--- NOTE | 2021-12-15 10:25 | History & Physical-Hospitalist ---
History of Present Illness HPI/Chief Complaint Patient is a 31-year-old male who presented to the emergency department due to chest pain. He denies any chest pain to me he states he never had any. Instead he states that he drank too much amounts of brought him to the hospital. He reported to the emergency room that he had drank about a pint of vodka though to me he said "enough." He reports a long history of drinking but went on a binge roughly 1 month ago due to the anniversary of his brother's . He has a remote history of withdrawing from alcohol including seizures. He is unsure if he wants to quit at this time though is interested in treatment options. Source: patient Date Seen 12/15/21 Time Seen by a Provider: 08:15 Attending Physician Michelle Rosales MD PCP No,Local Physician Referring Physician Date of Admission Dec 15, 2021 at 01:50 Home Medications & Allergies Home Medications Reviewed patient Home Medication Reconciliation performed by pharmacy medication reconciliations fiberglass technician and/or nursing. Patients Allergies have been reviewed. Allergies Allergies Coded Allergies No Known Drug Allergies (Unverified05/25/15) Past Lzfvssm-Iszvoe-Fzpxsm Hx Patient Social History Employed/Student: unemployed Tobacco Use?: Yes Tobacco type used: Cigarettes Smoking Status: Current Everyday Smoker Use of E-Cig and/or Vaping dev: No Substance use?: Yes Substance type: Marijuana Substance frequency: Several times a month Alcohol Use?: Yes Alcohol type: Hard Liquor Alcohol Frequency: Daily Pt feels they are or have been: No Immunizations Up To Date Date of Influenza Vaccine: Sep 16, 2021 First/Initial COVID19 Vaccinat: 09/16 Second COVID19 Vaccination Devin: 10/18 PED Vaccines UTD: Yes Seasonal Allergies Seasonal Allergies: No Current Status Primary Language: Latvian Preferred Spoken Language: Latvian Past Medical History Currently Using CPAP: No Currently Using BIPAP: No Sexually Transmitted Disease: No HIV/AIDS: No Loss of Vision: Denies Blood Disorders: No Adverse Reaction/Blood Tranf: No Family Medical History Reviewed Nursing Family Hx AIDS Alcoholism Cardiovascular disease Diabetes mellitus Hypertension Neoplasm No Pertinent Family Hx Review of Systems Constitutional: No chills, No fever; malaise EENTM: no symptoms reported Respiratory: No cough, No short of breath Cardiovascular: No chest pain, No palpitations Gastrointestinal: nausea Genitourinary: no symptoms reported Musculoskeletal: no symptoms reported Skin: no symptoms reported Psychiatric/Neurological: Headache Physical Exam Physical Exam Vital Signs Vital Signs - First Documented 12/15/21 12/15/21 00:27 05:20 Temp 36.5 Pulse 81 Resp 20 B/P (MAP) 154/91 (112) Pulse Ox 96 O2 Delivery Room Air O2 Flow Rate 2.00 95.00 Capillary Refill : Less Than 3 Seconds Height, Weight, BMI Height: 6'0" Weight: 175lbs. 0.0oz. [id number]; 25.96 BMI Method:Estimated General Appearance: No Apparent Distress, WD/WN HEENT: PERRL/EOMI, Moist Mucous Membranes Neck: Normal Inspection, Supple Respiratory: Lungs Clear, No Accessory Muscle Use, No Respiratory Distress Cardiovascular: Regular Rate, Rhythm, No Murmur Gastrointestinal: Normal Bowel Sounds, Non Tender, Soft Extremity: No Calf Tenderness, No Pedal Edema Neurologic/Psychiatric: Alert, Oriented x3, Normal Mood/Affect Skin: Normal Color, Warm/Dry Results Results/Procedures Labs Laboratory Tests 12/15/21 00:30 12/15/21 04:20 Patient resulted labs reviewed. Imaging [facility]. [place], [place] NAME: ADLERAAMIR Suraj [facility] REC#: [id number] PT STATUS: ADM Kieran : 1990 PHYSICIAN: ERICK CARDENAS DO ADMIT DATE: 12/15/21/ICU Draft Date of Exam:12/15/21 CHEST 1 VIEW, AP/PA ONLY INDICATION: Chest pain. COMPARISON: 06/23/2018 FINDINGS: Single frontal view of the chest demonstrates normal heart size and pulmonary vascularity. The lungs show low inspiratory volumes with crowding of the central hilar structures, but are otherwise clear. No large pleural effusion or pneumothorax is seen. The visualized osseous structures show no acute abnormalities. IMPRESSION: 1. No acute cardiopulmonary process. Dictated on workstation # [id number] Dict: 12/15/21 0535 Trans: 12/15/21 0540 [id number] Interpreted by: ADAIR BELTRAN MD Electronically signed by: Assessment/Plan Admission Diagnosis Alcohol intoxication Admission Status: Observation Assessment and Plan Alcohol intoxication Alcohol abuse disorder Doing well, mentation improved Has been binge drinking for the last month Data Modeler consulted, appreciate recs Hopefully home today if doing well Diagnosis/Problems Diagnosis/Problems (1) alcohol intoxication Clinical Quality Measures AMI/AHF: ASA po Prior to arrival: PEGGY Smith MD Dec 15, 2021 10:25
--- NOTE | 2021-12-15 14:39 | Discharge Inst-Simple/Standard ---
Discharge Inst-Standard Patient Instructions/Follow Up Plan of Care/Instructions/FU: Please continue to take your medications as written. Please follow up with your primary care doctor to follow up this hospital stay. Please work with the resources given to help you quit drinking alcohol safely. Activity as Tolerated: Yes Discharge Diet: No Restrictions Return to The Hospital For: Confusion, weakness, nausea, headache, seizure, hallucinations, if you feel you are getting worse. PEGGY TORIBIO MD Dec 15, 2021 14:39
[2021-12-15] MEDS ORDERED: ANTACID SUSP 30 ML UDC (MYLANTA) PO PRN (14:45)
[2021-12-15] MEDS ORDERED: SENNA W/DOCUSATE (SENOKOT S) TABLET PO PRN (14:45)
[2021-12-15] MEDS ORDERED: D5 1/2 NS 1000 ML IV SOLUTION 1,000 ML IV PRN (14:45)
[2021-12-15] MEDS ORDERED: 1/2 NS IV SOLUTION 1,000 ML IV PRN (14:45)
[2021-12-15] MEDS ORDERED: LORazepam INJ 2 MG/ML (ATIVAN) VIAL IV PRN (14:45)
[2021-12-15] MEDS ORDERED: LORazepam INJ 2 MG/ML (ATIVAN) VIAL IM/IV PRN (14:45)
[2021-12-15] MEDS ORDERED: ONDANSETRON 4 MG (ZOFRAN) ORAL DISSOLVE TAB SL PRN (14:45)
[2021-12-15] MEDS: LORazepam 1 MG (ATIVAN) TAB PO PRN ×3 (15:26→20:47)
[2021-12-15] MEDS: MAGNESIUM OXIDE (MAG-OX)400 MG TAB PO SCH (20:47)
[2021-12-16] MEDS: LORazepam 1 MG (ATIVAN) TAB PO PRN (00:20)
[2021-12-16 04:45] LABS: BASOPHILS % (AUTO) 0 % (0-10); EOSINOPHILS % (AUTO) 0 % (0-10); HEMATOCRIT 40 % (40-54); HEMOGLOBIN 13.5 g/dL (13.3-17.7); LYMPHOCYTES % (AUTO) 29 % (12-44); MEAN CORPUSCULAR HEMOGLOBIN 30 pg (25-34); MEAN CORPUSCULAR HGB CONC 34 g/dL (32-36); MEAN CORPUSCULAR VOLUME 89 fL (80-99); MEAN PLATELET VOLUME 9.4 fL (9.0-12.2); MONOCYTES # (AUTO) 0.6 10^3/uL (0.0-1.0); MONOCYTES % (AUTO) 8 % (0-12); NEUTROPHILS # (AUTO) 4.3 10^3/uL (1.8-7.8); NEUTROPHILS % (AUTO) 62 % (42-75); PLATELET COUNT 164 10^3/uL (130-400)
[2021-12-16 04:57] LABS: POTASSIUM 3.9 MMOL/L (3.6-5.0)
[2021-12-16 04:58] LABS: CALCIUM 8.6 MG/DL (8.5-10.1)
[2021-12-16 05:02] LABS: CREATININE SERUM 0.73 MG/DL (0.60-1.30)
[2021-12-16] MEDS ORDERED: MULTIVIT W/MINERALS TAB (THERAGRAN M) PO SCH (07:00)
[2021-12-16] MEDS ORDERED: THIAMINE 100 MG (VITAMIN B-1) TAB PO SCH (07:00)
[2021-12-16] MEDS: PANTOPRAZOLE 40 MG (PROTONIX) VIAL IV SCH (07:55)
[2021-12-16] MEDS: MAGNESIUM OXIDE (MAG-OX)400 MG TAB PO SCH (07:55)
[2021-12-16] MEDS: LACTATED RINGERS 1,000 ML IV SCH ×2 (07:56→13:26)
--- NOTE | 2021-12-16 08:05 | Discharge Summary ---
Diagnosis/Chief Complaint Date of Admission Dec 15, 2021 at 01:50 Date of Discharge Discharge Date: Dec 15, 2021 Admission Diagnosis Alcohol intoxication Primary Care No,Local Physician Discharge Diagnosis (1) alcohol intoxication Discharge Summary Discharge Physical Exam Allergies: Coded Allergies: No Known Drug Allergies (Unverified , 05/25/15) Vitals & I&Os Vital Signs Date Time Temp Pulse Resp B/P (MAP) Pulse Ox O2 Delivery O2 Flow Rate FiO2 12/16/21 08:00 36.4 12/16/21 00:32 74 12/16/21 00:00 137/72 96 Room Air 12/15/21 17:00 14 12/15/21 10:00 2.00 General Appearance: No Apparent Distress, WD/WN Cardiovascular: Regular Rate, Rhythm, No Murmur Gastrointestinal: Normal Bowel Sounds, Non Tender, Soft Neurologic/Psychiatric: Alert, Oriented x3 Hospital Course Patient is a 31-year-old male who was admitted to the hospital due to severe alcohol intoxication. He was monitored overnight to make sure he could protect his airway and did well. He did have some nausea and headache but had no signs of withdrawal. resident services manager was consulted to assist with treatment resources once discharged. He was discharged in stable and improved condition to follow- up with Dr Stinson for assistance with alcohol cessation. Labs (last 24 hrs) Laboratory Tests 12/16/21 04:17: White Blood Count 7.0, Red Blood Count 4.44, Hemoglobin 13.5, Hematocrit 40, Mean Corpuscular Volume 89, Mean Corpuscular Hemoglobin 30, Mean Corpuscular Hemoglobin Concent 34, Red Cell Distribution Width 15.6H, Platelet Count 164, Mean Platelet Volume 9.4, Immature Granulocyte % (Auto) 0, Neutrophils (%) (Auto) 62, Lymphocytes (%) (Auto) 29, Monocytes (%) (Auto) 8, Eosinophils (%) (Auto) 0, Basophils (%) (Auto) 0, Neutrophils # (Auto) 4.3, Lymphocytes # (Auto) 2.0, Monocytes # (Auto) 0.6, Eosinophils # (Auto) 0.0, Basophils # (Auto) 0.0, Immature Granulocyte # (Auto) 0.0, Sodium Level 135, Potassium Level 3.9, Chloride Level 98, Carbon Dioxide Level 24, Anion Gap 13, Blood Urea Nitrogen 6L , Creatinine 0.73, Estimat Glomerular Filtration Rate 125, BUN/Creatinine Ratio 8, Glucose Level 82, Calcium Level 8.6 Patient resulted labs reviewed. Pending Labs Laboratory Tests 12/16/21 04:17: White Blood Count 7.0, Red Blood Count 4.44, Hemoglobin 13.5, Hematocrit 40, Mean Corpuscular Volume 89, Mean Corpuscular Hemoglobin 30, Mean Corpuscular Hemoglobin Concent 34, Red Cell Distribution Width 15.6, Platelet Count 164, Mean Platelet Volume 9.4, Immature Granulocyte % (Auto) 0, Neutrophils (%) (Auto) 62, Lymphocytes (%) (Auto) 29, Monocytes (%) (Auto) 8, Eosinophils (%) (Auto) 0, Basophils (%) (Auto) 0, Neutrophils # (Auto) 4.3, Lymphocytes # (Auto) 2.0, Monocytes # (Auto) 0.6, Eosinophils # (Auto) 0.0, Basophils # (Auto) 0.0, Immature Granulocyte # (Auto) 0.0, Sodium Level 135, Potassium Level 3.9, Chloride Level 98, Carbon Dioxide Level 24, Anion Gap 13, Blood Urea Nitrogen 6, Creatinine 0.73, Estimat Glomerular Filtration Rate 125, BUN/Creatinine Ratio 8, Glucose Level 82, Calcium Level 8.6 Discussion & Recommendations Discharge Planning: >30 minutes discharge planning Discharge Home Medications: Active Scripts Active No Active Prescriptions or Reported Medications Instructions to patient/family Please see electronic discharge instructions given to patient. Clinical Quality Measures AMI/AHF: ASA po Prior to arrival: No Copy Copies To 1: JAMEL STINSON MD, KATELYN M MD Dec 16, 2021 08:05
[2021-12-16] MEDS ORDERED: FOLIC ACID 1 MG TAB PO SCH (09:00)
== END 2021-12-16 13:28 | disposition home or self-care, planned readmission (81) ==
LOC: EDUNIT# 00:27 → ER 00:28 → ICU 01:50
PROVIDERS: ADMIT Internal Medicine; ATTEND Internal Medicine
DX: F10.129 Alcohol abuse with intoxication, unspecified (principal); R07.9 Chest pain, unspecified; F17.210 Nicotine dependence, cigarettes, uncomplicated
CPT/HCPCS: 71045; 80048 ×2; 80053; 80306; 81000; 82150; 82550; 82553; 83690; 83735; 83874; 83880; 84484; 85025 ×2; 85610; 85730; 87636; 93005; 93041; 96374; 99284; G0378; G0480; 36415; 80320; 96375

== ENCOUNTER 2022-10-07 04:38 | Emergency (ER) | payer SELFPAY ==
[2022-10-07] MEDS ORDERED: hydrOXYzine (VISTARIL/ATARAX) 25 MG capsule/tablet PO ONE (05:15)
--- NOTE | 2022-10-07 05:18 | ED General ---
General Chief Complaint: General Problems/Pain Stated Complaint: NOT FEELING RIGHT,ETOH Nursing Triage Note: PT ARRIVAL TO ER [facility] FROM HOME WITH COMPLAINT OF NOT FEELING WELL 2 WEEKS. PT STATES THAT HE HAS A SEIZURE DISORDER AND HAS FELT LIKE HE WAS GOING TO HAVE A SEIZURE. PATIENT STATES HE LAST HAD ONE TWO WEEKS AGO, HAS FELT LIKE HE COULD AGAIN AT ANY TIME SINCE HIS LAST SEIZURE. WHEN ASKED WHAT MADE HIM COME IN THIS AM HE STATE STHAT HE IS TIRED OF FEELING LIKE HE IS GOING TO HAVE A SEIZURE. PT DENIES BEING COMPLIANT WITH ANTI SEIZURE MEDICATION. PATIENT STATES THAT HE DOES HAVE AN APPOINTMENT NEXT MONTH WITH [facility]. NO OTHER COMPLAINTS History of Present Illness Date Seen by Provider: Oct 07, 2022 Time Seen by Provider: 04:55 Initial Comments . Daily with PMH of seizures/alcohol abuse/anxiety, is here with complaints of having a sensation that he is about to have a seizure. Patient does not take any seizure medications. Patient has drank 2 pints of vodka today. His last seizure was 2 to 3 weeks ago as per patient. Patient saw a PCP recently but was not given seizure medication, and was asked to come in for a follow-up appointment in October. When asked how he knows he will have a seizure, he states he feels really anxious and shaky. Denies fever, abdominal pain, Nausea, vomiting, SOB. Pt lives with a roommate. Denies drug use except for occasional marijuana use. Allergies and Home Medications Allergies Coded Allergies: No Known Drug Allergies (Unverified , 05/25/15) Patient Home Medication List Home Medication List Reviewed: Yes No Active Prescriptions or Reported Meds Review of Systems Review of Systems Constitutional: no symptoms reported EENTM: see HPI Respiratory: no symptoms reported Cardiovascular: no symptoms reported Gastrointestinal: no symptoms reported Genitourinary: no symptoms reported Musculoskeletal: no symptoms reported Skin: no symptoms reported Psychiatric/Neurological: See HPI, Anxiety Hematologic/Lymphatic: No Symptoms Reported Immunological/Allergic: no symptoms reported Past Dlysknb-Kqbgks-Negppz Hx Patient Social History Tobacco Use?: Yes Tobacco type used: Cigarettes Smoking Status: Current Everyday Smoker Use of E-Cig and/or Vaping dev: No Substance use?: Yes Substance type: Marijuana Substance frequency: Once in a while Alcohol Use?: Yes Alcohol type: Beer, Hard Liquor Alcohol Frequency: Daily Pt feels they are or have been: No Immunizations Up To Date Tetanus Booster (TDap): More than 5yrs PED Vaccines UTD: Yes Influenza Vaccine Up-to-Date: No; Not Current First/Initial COVID19 Vaccinat: DENIES Second COVID19 Vaccination Devin: DENIES Third COVID19 Vaccination Date: DENIES Seasonal Allergies Seasonal Allergies: No Past Medical History Surgeries: No Respiratory: No Currently Using CPAP: No Currently Using BIPAP: No Cardiac: No Neurological: No Reproductive Disorders: No Sexually Transmitted Disease: No HIV/AIDS: No Genitourinary: No Gastrointestinal: No Musculoskeletal: Yes (KNEE PAIN ) Endocrine: No HEENT: Yes (POOR DENTITION) Loss of Vision: Denies Cancer: No Psychosocial: Yes (AUDITORY HALLUCINATIONS; ALCOHOLISM) Integumentary: No Blood Disorders: No Adverse Reaction/Blood Tranf: No Family Medical History AIDS Alcoholism Cardiovascular disease Diabetes mellitus Hypertension Neoplasm No Pertinent Family Hx Physical Exam Vital Signs Vital Signs - First Documented 10/07/22 04:40 Temp 36.0 Pulse 82 Resp 18 B/P (MAP) 124/79 (94) Pulse Ox 98 O2 Delivery Room Air Capillary Refill : Less Than 3 Seconds Height, Weight, BMI Height: 6'0" Weight: 175lbs. 0.0oz. 79.431984ck; 25.96 BMI Method:Estimated General Appearance: No Apparent Distress, WD/WN, Anxious HEENT: PERRL/EOMI, Normal ENT Inspection Neck: Full Range of Motion, Normal Inspection Respiratory: Chest Non Tender, Lungs Clear, Normal Breath Sounds; No No Accessory Muscle Use, No No Respiratory Distress, No Accessory Muscle Use, No Crackles, No Decreased Breath Sounds, No Expiration, No Inspiration, No Pleural Rub, No Rales, No Respiratory Distress, No Rhonci, No Stridor, No Wheezing, No Other Cardiovascular: Regular Rate, Rhythm, No Edema Gastrointestinal: Normal Bowel Sounds, No Organomegaly, Non Tender, Soft Neurologic/Psychiatric: Alert, Oriented x3, No Motor/Sensory Deficits, Other (Patient is anxious) Skin: Normal Color Progress/Results/Core Measures Suspected Sepsis SIRS Temperature: Pulse: 82 Respiratory Rate: 18 Blood Pressure 124 /79 Mean: 94 Results/Orders Vital Signs/I&O 10/07/22 04:40 Temp 36.0 Pulse 82 Resp 18 B/P (MAP) 124/79 (94) Pulse Ox 98 O2 Delivery Room Air Capillary Refill : Less Than 3 Seconds Blood Pressure Mean: 94 Progress Note : Progress Note 1. ANXIETY: - Hydroxyzine 25 mg STAT - Follow up with PCP in the next 7 days -The patient was seen in the ED, and treated appropriately to presentation at a specific point in time. Patient is informed that there is a possibility that disease and illness can evolve and change in acuity rapidly or slowly after patient is discharged from the ER. Precautionary advice given to the patient for immediate return to ER if symptoms worsen or do not resolve, and to seek emergency care sooner rather than later. Pt also advised on the importance of PCP follow up and compliance with management and follow up plan with PCP and/or specialist, as this is part of the management plan. Pt verbally expressed understanding. Departure Impression Primary Impression: Anxiety Disposition: 01 HOME, SELF-CARE Condition: Stable Departure-Patient Inst. Referrals: NO,LOCAL PHYSICIAN (PCP/Family) Primary Care Physician Patient Instructions: Anxiety, Adult ED, Anxiety, Adult (DC) Add. Discharge Instructions: - Follow up with PCP in the next 7 days - Advised to stop binge drinking All discharge instructions reviewed with patient and/or family. Voiced understanding. Scripts No Active Prescriptions or Reported Meds ALANA GRANDE MD Oct 07, 2022 05:18
[2022-10-07] MEDS ORDERED: hydrOXYzine (VISTARIL/ATARAX) 25 MG capsule/tablet ONE (05:27)
[2022-10-07 05:51] VITALS: BP 122/84
== END 2022-10-07 06:03 | disposition home or self-care (01) ==
LOC: EDUNIT# 04:38 → ER 04:42
DX: F41.9 Anxiety disorder, unspecified (principal); F17.210 Nicotine dependence, cigarettes, uncomplicated; Z28.310 Unvaccinated for COVID-19
CPT/HCPCS: 99283

== ENCOUNTER 2022-11-12 23:48 | Emergency (ER) | payer SELFPAY ==
[~2022-11-12] VITALS: Ht 182.9 cm; Wt 79.5 kg
--- NOTE | 2022-11-12 23:53 | ED EENT ---
History of Present Illness General Stated Complaint: FALL,NOSE PAIN History of Present Illness Date Seen by Provider: Nov 12, 2022 Time Seen by Provider: 23:53 Initial Comments 32-year-old male presents with nose pain. Patient was brought in by EMS because he fell 2 days ago and his nose hurts and he thinks he might of broke it. Patient was intoxicated at the time he fell. He is currently intoxicated. He has no other complaints Allergies and Home Medications Allergies Coded Allergies: No Known Drug Allergies (Unverified , 05/25/15) Patient Home Medication List Home Medication List Reviewed: Yes No Active Prescriptions or Reported Meds Review of Systems Review of Systems Constitutional: see HPI Eyes: No Symptoms Reported Ears: No Symptoms Reported Nose: see HPI Mouth: no symptoms reported Throat: no symptoms reported Respiratory: no symptoms reported Cardiovascular: no symptoms reported Gastrointestinal: no symptoms reported Past Gixnxes-Aclsim-Hafvgw Hx Immunizations Up To Date Tetanus Booster (TDap): More than 5yrs PED Vaccines UTD: Yes First/Initial COVID19 Vaccinat: DENIES Second COVID19 Vaccination Devin: DENIES Third COVID19 Vaccination Date: DENIES Seasonal Allergies Seasonal Allergies: No Past Medical History Surgeries: No Respiratory: No Currently Using CPAP: No Currently Using BIPAP: No Cardiac: No Neurological: No Reproductive Disorders: No Sexually Transmitted Disease: No HIV/AIDS: No Genitourinary: No Gastrointestinal: No Musculoskeletal: Yes (KNEE PAIN ) Endocrine: No HEENT: Yes (POOR DENTITION) Loss of Vision: Denies Cancer: No Psychosocial: Yes (AUDITORY HALLUCINATIONS; ALCOHOLISM) Integumentary: No Blood Disorders: No Adverse Reaction/Blood Tranf: No Family Medical History AIDS Alcoholism Cardiovascular disease Diabetes mellitus Hypertension Neoplasm No Pertinent Family Hx Physical Exam Vital Signs Vital Signs - First Documented 11/12/22 23:50 Temp 35.8 Pulse 80 Resp 16 B/P (MAP) 143/95 (111) Pulse Ox 97 O2 Delivery Room Air Height, Weight, BMI Height: 6'0" Weight: 175lbs. 0.0oz. 79.588199xc; 25.96 BMI Method:Estimated General Appearance: other (Intoxicated) Nose: other (Mild swelling, no obvious deformity) Cardiovascular: regular rate, rhythm Respiratory: no respiratory distress Neurologic/Psychiatric: other (Intact) Skin: other (Small abrasion no) Progress/Results/Core Measures Results/Orders My Orders Orders - ALLY CERVANTES DO Nasal Bones 3 Views (11/13/22 00:01) Vital Signs/I&O 11/12/22 23:50 Temp 35.8 Pulse 80 Resp 16 B/P (MAP) 143/95 (111) Pulse Ox 97 O2 Delivery Room Air Progress Progress Note : Progress Note Patient's x-ray was reviewed by me and appears to show nasal bone fractures. Discussed with patient that we do not do anything emergently and he will need to follow-up with the ENT once the swelling goes down if he would like to have further treatment. Patient is intoxicated and this may limit his ability to remember conversation. Patient will be discharged home. Departure Impression Primary Impression: Alcohol intoxication Qualified Codes: F10.920 - Alcohol use, unspecified with intoxication, uncomplicated Additional Impression: Nasal bone fracture Qualified Codes: S02.2XXA - Fracture of nasal bones, initial encounter for closed fracture Disposition: HOME, SELF-CARE Condition: Stable Departure-Patient Inst. Referrals: NO,LOCAL PHYSICIAN (PCP/Family) Primary Care Physician Patient Instructions: Nose Fracture ED, Alcohol Intoxication ED, Alcohol Use Disorder ED Add. Discharge Instructions: Please follow-up with ENT once swelling has gone down if you would like further treatment on your nose fracture. Please limit your alcohol consumption please consider seeking help with your alcohol use Scripts No Active Prescriptions or Reported Meds ALLY CERVANTES DO Nov 12, 2022 23:53
[2022-11-13 00:51] VITALS: BP 139/87
--- NOTE | 2022-11-13 06:08 | Diagnostic Imaging Report ---
INDICATION: Fall with injury to the nose and face. COMPARISON: CT head dated 06/23/2018 FINDINGS: Multiple radiographic views of the nasal bones were obtained. Note is made of leftward deviation of the nasal septum. No displaced fractures of the nasal bones are seen. Paranasal sinuses appear clear. No unexpected radiopaque foreign bodies are seen. No other gross acute osseous abnormalities identified. IMPRESSION: 1. No displaced acute fracture of the nasal bones. If there is persistent concern, CT of the face is advised. Dictated by: Dictated on workstation # [id number]
== END 2022-11-13 00:54 | disposition home or self-care (01) ==
LOC: EDUNIT# 23:48 → ER 23:49
DX: S02.2XXA Fracture of nasal bones, initial encounter for closed fracture (principal); F10.129 Alcohol abuse with intoxication, unspecified; Z28.310 Unvaccinated for COVID-19; W18.30XA Fall on same level, unspecified, initial encounter
CPT/HCPCS: 70160

== ENCOUNTER 2022-11-21 06:28 | Emergency (ER) | payer SELFPAY ==
[2022-11-21] MEDS ORDERED: LIDOCAINE 1% INJ 20 ML VIAL IJ STA (07:15)
[2022-11-21] MEDS ORDERED: TETANUS,DIPTH,PERTUSS P/F (BOOSTRIX) 0.5 ML VIAL IM ONE (07:15)
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
[2022-11-21] MEDS ORDERED: LIDOCAINE 1% INJ 10 ML VIAL ONE (07:35)
[2022-11-21 08:41] VITALS: BP 119/83
== END 2022-11-21 08:41 | disposition home or self-care (01) ==
LOC: EDUNIT# 06:28 → ER 06:30
DX: S01.112A Laceration without foreign body of left eyelid and periocular area, initial encounter (principal); S80.211A Abrasion, right knee, initial encounter; Z23 Encounter for immunization; Y00.XXXA Assault by blunt object, initial encounter
CPT/HCPCS: 12001; 90715

== ENCOUNTER 2022-12-01 19:00 | Emergency (ER) | payer SELFPAY ==
[2022-12-01 19:17] VITALS: BP 133/94
== END 2022-12-01 19:18 | disposition home or self-care (01) ==
LOC: EDUNIT# 19:00 → ER 19:01
DX: Z48.02 Encounter for removal of sutures (principal); F10.129 Alcohol abuse with intoxication, unspecified

== ENCOUNTER 2023-01-23 02:13 | Emergency (ER) | payer SELFPAY ==
[~2023-01-23] VITALS: Ht 183 cm; Wt 79.5 kg
[2023-01-23 02:15] VITALS: BP 125/91
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
== END 2023-01-23 03:37 | disposition home or self-care (01) ==
LOC: EDUNIT# 02:13 → ER 02:14
DX: F10.129 Alcohol abuse with intoxication, unspecified (principal); F17.210 Nicotine dependence, cigarettes, uncomplicated; Z28.310 Unvaccinated for COVID-19
CPT/HCPCS: 99283

== ENCOUNTER 2023-05-16 16:09 | Emergency (ER) | payer SELFPAY ==
[~2023-05-16] VITALS: Ht 188 cm; Wt 97.5 kg
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
--- NOTE | 2023-05-16 16:51 | Diagnostic Imaging Report ---
INDICATION: Right hand pain. COMPARISON: None. DISCUSSION: Three views of the right hand were obtained. Along the ulnar aspect of the 5th MCP joint there is a 2 x 3 mm subtle radiopaque foreign body within the soft tissues. There is no fracture or dislocation. Alignment is anatomic. IMPRESSION: 1. 3 x 2 mm radiopaque foreign body within the soft tissues near the 5th MCP joint. No fracture. Dictated by: Dictated on workstation # [id number]
[2023-05-16 17:20] VITALS: BP 124/76
== END 2023-05-16 17:20 | disposition home or self-care (01) ==
LOC: EDUNIT# 16:09 → ER 16:11
DX: S61.411A Laceration without foreign body of right hand, initial encounter (principal); F17.210 Nicotine dependence, cigarettes, uncomplicated; Z28.310 Unvaccinated for COVID-19; W25.XXXA Contact with sharp glass, initial encounter
CPT/HCPCS: 12001; 73130

== ENCOUNTER 2023-06-06 22:02 | Emergency (ER) | payer SELFPAY ==
[~2023-06-06] VITALS: Ht 187.9 cm; Wt 99.7 kg
[2023-06-06] MEDS ORDERED: LACTATED RINGERS 1,000 ML 1,000 ML IV ONE (22:15)
[2023-06-06 22:28] LABS: BASOPHILS % (AUTO) 1 % (0-10); EOSINOPHILS # (AUTO) 0.1 10^3/uL (0.0-0.3); EOSINOPHILS % (AUTO) 1 % (0-10); HEMATOCRIT 41 % (40-54); HEMOGLOBIN 13.8 g/dL (13.3-17.7); LYMPHOCYTES # (AUTO) 3.5 10^3/uL (1.0-4.0); LYMPHOCYTES % (AUTO) 55 % (12-44); MEAN CORPUSCULAR HEMOGLOBIN 31 pg (25-34); MEAN CORPUSCULAR HGB CONC 34 g/dL (32-36); MEAN CORPUSCULAR VOLUME 92 fL (80-99); MONOCYTES # (AUTO) 0.5 10^3/uL (0.0-1.0); MONOCYTES % (AUTO) 7 % (0-12); NEUTROPHILS # (AUTO) 2.3 10^3/uL (1.8-7.8); NEUTROPHILS % (AUTO) 36 % (42-75); PLATELET COUNT 175 10^3/uL (130-400); WHITE BLOOD COUNT 6.4 10^3/uL (4.3-11.0)
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
[2023-06-06 22:58] LABS: ALANINE AMINOTRANSFERASE 39 U/L (0-55); ALKALINE PHOSPHATASE 79 U/L (40-136); BILIRUBIN,TOTAL 0.2 MG/DL (0.1-1.0); BUN/CREATININE RATIO 12; CALCIUM 8.2 MG/DL (8.5-10.1); CARBON DIOXIDE 24 MMOL/L (21-32); CHLORIDE 106 MMOL/L (98-107); CREATINE KINASE 361 U/L (30-200); CREATININE SERUM 0.74 MG/DL (0.60-1.30); GFR ESTIMATED 123; GLUCOSE 88 MG/DL (70-105); MAGNESIUM 2.4 MG/DL (1.6-2.4); POTASSIUM 3.8 MMOL/L (3.6-5.0); SODIUM 142 MMOL/L (135-145); TOTAL PROTEIN 7.2 GM/DL (6.4-8.2)
[2023-06-06 22:59] LABS: ACETAMINOPHEN < 10 UG/ML (10-30)
[2023-06-06 23:04] LABS: CREATINE KINASE MB 2.4 NG/ML (<6.6)
[2023-06-06 23:49] VITALS: BP 124/90
--- NOTE | 2023-06-07 07:42 | Diagnostic Imaging Report ---
PROCEDURE: CT head wo r/o stroke. TECHNIQUE: Multiple contiguous axial images were obtained through the brain without the use of intravenous contrast. Auto Exposure Controls were utilized during the CT exam to meet ALARA standards for radiation dose reduction. INDICATION: Acute neurologic deficit, seizure CT HEAD: CT images of the head were obtained. FINDINGS: Ventricles and sulci are within normal limits for size. There is no intracranial hemorrhage identified. There is no abnormal mass effect or shift of midline structures. IMPRESSION: Unremarkable CT of the head. Dictated by: Dictated on workstation # [id number]
== END 2023-06-06 23:49 | disposition home or self-care (01) ==
LOC: EDUNIT# 22:02 → ER 22:03
DX: U07.1 COVID-19 (principal); F10.129 Alcohol abuse with intoxication, unspecified; R05.9 Cough, unspecified; R09.81 Nasal congestion; F17.210 Nicotine dependence, cigarettes, uncomplicated; Y90.8 Blood alcohol level of 240 mg/100 ml or more; Z59.00 Homelessness unspecified; Z28.310 Unvaccinated for COVID-19
CPT/HCPCS: 70450; 80053; 82550; 82553; 83735; 83874; 85025; 87636; 93041; 99284; G0480 ×2; 36415; 80320; 80329

== ENCOUNTER 2023-07-28 10:52 | Emergency (ER) | payer OTHER ==
[~2023-07-28] VITALS: Ht 187.9 cm; Wt 82.1 kg
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
[2023-07-28] MEDS ORDERED: LACTATED RINGERS 1,000 ML 1,000 ML IV ONE (11:30)
[2023-07-28 11:36] LABS: BASOPHILS % (AUTO) 0 % (0-10); EOSINOPHILS # (AUTO) 0.1 10^3/uL (0.0-0.3); EOSINOPHILS % (AUTO) 1 % (0-10); HEMATOCRIT 50 % (40-54); HEMOGLOBIN 16.3 g/dL (13.3-17.7); LYMPHOCYTES # (AUTO) 3.2 10^3/uL (1.0-4.0); LYMPHOCYTES % (AUTO) 48 % (12-44); MEAN CORPUSCULAR HEMOGLOBIN 32 pg (25-34); MEAN CORPUSCULAR HGB CONC 33 g/dL (32-36); MEAN CORPUSCULAR VOLUME 98 fL (80-99); MEAN PLATELET VOLUME 8.5 fL (9.0-12.2); MONOCYTES # (AUTO) 0.5 10^3/uL (0.0-1.0); MONOCYTES % (AUTO) 8 % (0-12); NEUTROPHILS # (AUTO) 2.9 10^3/uL (1.8-7.8); NEUTROPHILS % (AUTO) 43 % (42-75); PLATELET COUNT 142 10^3/uL (130-400); WHITE BLOOD COUNT 6.6 10^3/uL (4.3-11.0)
[2023-07-28 11:39] LABS: BILIRUBIN,URINE NEGATIVE (NEGATIVE); CLARITY,URINE CLEAR; COLOR,URINE YELLOW; GLUCOSE, URINE (UA) NEGATIVE (NEGATIVE); KETONES,URINE NEGATIVE (NEGATIVE); LEUKOCYTE ESTERASE ,URINE NEGATIVE (NEGATIVE); NITRITE,URINE NEGATIVE (NEGATIVE); PH,URINE 5.5 (5-9); PROTEIN,URINE NEGATIVE (NEGATIVE)
[2023-07-28 11:40] LABS: BACTERIA,URINE TRACE /HPF; SQUAMOUS EPITHELIAL CELL,UR RARE /HPF
[2023-07-28 11:42] LABS: AMPHETAMINE SCREEN, URINE NEGATIVE (NEGATIVE); BARBITURATE SCREEN URINE NEGATIVE (NEGATIVE); CANNABINOID SCREEN, URINE NEGATIVE (NEGATIVE); COCAINE SCREEN URINE NEGATIVE (NEGATIVE); METHADONE STAT NEGATIVE (NEGATIVE); OPIATE SCREEN URINE NEGATIVE (NEGATIVE); OXYCODONE STAT NEGATIVE (NEGATIVE); TRICYCLIC ANTIDEPRESSANTS SCRE NEGATIVE (NEGATIVE)
--- NOTE | 2023-07-28 11:44 | Diagnostic Imaging Report ---
PROCEDURE: CT head and CT cervical spine without contrast. TECHNIQUE: Multiple contiguous axial images were obtained through the brain and cervical spine without the use of intravenous contrast. Sagittal and coronal reformations through the cervical spine were then performed. Auto Exposure Controls were utilized during the CT exam to meet ALARA standards for radiation dose reduction. INDICATION: Fall with head and neck pain. COMPARISON: Comparison is made with prior head CT from 06/06/2023. FINDINGS: CT HEAD: The ventricles and sulci are within normal limits. No sulcal effacement or midline shift is identified. No acute intra-axial or extra-axial hemorrhage is detected. Cisterns are patent. Visualized paranasal sinuses are clear. IMPRESSION: No acute intracranial process is detected. CT CERVICAL SPINE: Alignment of the cervical spine is normal. No fractures are identified. There is no subluxation. The prevertebral tissues are within normal limits. Odontoid appears intact. IMPRESSION: No acute bony abnormality is detected. Dictated by: Dictated on workstation # [id number]
[2023-07-28 11:46] LABS: ALBUMIN 4.4 GM/DL (3.2-4.5); CHLORIDE 104 MMOL/L (98-107); SODIUM 145 MMOL/L (135-145)
[2023-07-28 11:48] LABS: CALCIUM 8.5 MG/DL (8.5-10.1)
[2023-07-28 11:49] LABS: GLUCOSE 96 MG/DL (70-105); TOTAL PROTEIN 8.2 GM/DL (6.4-8.2)
[2023-07-28 11:50] LABS: CARBON DIOXIDE 26 MMOL/L (21-32)
[2023-07-28 11:51] LABS: BILIRUBIN,TOTAL 0.4 MG/DL (0.1-1.0)
[2023-07-28 11:53] LABS: ALKALINE PHOSPHATASE 82 U/L (40-136); CREATININE SERUM 0.81 MG/DL (0.60-1.30); GFR ESTIMATED 119
[2023-07-28 11:54] LABS: BUN/CREATININE RATIO 9
[2023-07-28 11:55] LABS: ACETAMINOPHEN < 10 UG/ML (10-30); SALICYLATE < 5.0 MG/DL (5.0-20.0)
[2023-07-28 11:56] LABS: ALANINE AMINOTRANSFERASE 38 U/L (0-55)
[2023-07-28] MEDS ORDERED: LORA-405 PO (13:53)
[2023-07-28 15:01] VITALS: BP 139/77
== END 2023-07-28 15:00 | disposition home or self-care (01) ==
LOC: EDUNIT# 10:52 → ER 10:53
DX: F10.20 Alcohol dependence, uncomplicated (principal); F17.210 Nicotine dependence, cigarettes, uncomplicated; Z59.00 Homelessness unspecified; Y90.8 Blood alcohol level of 240 mg/100 ml or more
CPT/HCPCS: 70450; 72125; 80053; 80306; 81000; 85025; 93041; G0480 ×3; 36415; 80320; 80329; 93005